=== PATIENT | male | born 1960 | race Caucasian/White ===

== ENCOUNTER → 2017-02-24 | Outpatient (CLI) | payer MEDICARE, SELFPAY | END | disposition home or self-care (01) | LOC: GMAJ 14:41 | PROVIDERS: ATTEND Family Medicine | DX: Z79.899 Other long term (current) drug therapy (principal) ==

== ENCOUNTER 2017-06-14 16:35 | Emergency (ER) | payer MEDICARE, SELFPAY ==
[2017-06-14] MEDS ORDERED: SODIUM CHLORIDE 0.9% 1000ML 1,000 ML IVS ONE (16:52)
--- NOTE | 2017-06-14 16:53 | ED.PDOC ---
History of Present Illness - General Chief Complaint: Neuro Symptoms/Deficits Stated Complaint: "my equilibrium is off" Time Seen by Provider: 06/14/17 16:49 Source: patient Exam Limitations: no limitations - History of Present Illness Initial Comments: Kurt Milner 56 y/o male with seizure disorder stated he had been feeling unsteady feels like fallin when he walks which started yesterday stated fell 2x at home but able to get up.Denies dizziness,slurred speech, weakness no tinnitus no hearing loss Timing/Duration: other - yesterday Severity: moderate Improving Factors: nothing Worsening Factors: nothing Associated Symptoms: denies symptoms Allergies/Adverse Reactions: Allergies NO KNOWN ALLERGY Allergy (Verified 10/30/15 07:27) Home Medications: Ambulatory Orders Phenytoin Sodium Extended [Phenytek] 200 mg PO BID 10/19/15 Albuterol Sulfate [Proair Hfa] 2 puff INH Q4H PRN #1 10/20/15 HYDROcodone 5MG/APAP 325MG [[place] 5/325] 1 - 2 ea PO Q4H PRN #30 tab 10/20/15 guaiFENesin ER TAB [Mucinex Tab] 600 mg PO BID #100 tab 10/20/15 Aspirin [St Nii Low Dose Aspiri] 81 mg PO DAILY #100 chw 06/14/17 B-Complex W/ Folic Acid [B Complex Plus] 1 tab PO DAILY #120 tab 06/14/17 Review of Systems - Review of Systems Constitutional: States: no symptoms reported EENTM: States: no symptoms reported, other - blind left eye Respiratory: States: no symptoms reported Cardiology: States: no symptoms reported Gastrointestinal/Abdominal: States: no symptoms reported Genitourinary: States: no symptoms reported Musculoskeletal: States: no symptoms reported Skin: States: no symptoms reported Neurological: States: no symptoms reported Past Medical History (General) - Patient Medical History Hx Seizures: Yes Hx Stroke: No Hx Asthma: No Hx of COPD: Yes Hx Cardiac Disorders: No Hx Congestive Heart Failure: No Hx Pacemaker: No Hx Hypertension: No Hx Diabetes: No Hx MRSA: No Surgical History: other - bronchoscopy - Vaccination History Hx Influenza Vaccination: No - Social History Hx Tobacco Use: Yes Hx Alcohol Use: Yes - Use decreased to one pint monthly. Hx Substance Use: No Hx Physical Abuse: No Hx Emotional Abuse: No - Activities of Daily Living Patient Lives Alone: Yes [facility] (if applicable): [facility] Grooming Ability: Independent Eating (Feeding) Ability: Independent Toileting Ability: Independent Family Medical History - Family History Father Family History: Unknown Name: Irving Mitchell Age (years): 70 Living Status: Age at (years of age): 70 Cause of : Stroke Hx Family Asthma: Yes - parents,brother Hx Family Congestive Heart Failure: No Hx Family Hypertension: Yes - Mother Hx Family Stroke: Yes - Father brother Hx Cardiac Disease: No Hx Family Diabetes: No Hx Family Cancer: Yes - Aunt breast cancer. Uncles colon cancer. Physical Exam - Physical Exam General Appearance: Alert, No apparent distress Eye Exam: right normal, left other - legally blind Ears, Nose, Throat: hearing grossly normal, normal ENT inspection, normal pharynx Neck: non-tender, full range of motion, supple, normal inspection Respiratory: chest non-tender, lungs clear, normal breath sounds Cardiovascular/Chest: normal peripheral pulses, regular rate, rhythm, no gallop , no murmur Peripheral Pulses: radial,right: 1+, radial,left: 1+ Gastrointestinal/Abdominal: normal bowel sounds, non tender, soft Back Exam: normal inspection, no CVA tenderness Extremity: normal range of motion, non-tender, normal inspection, no calf tenderness 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, no motor/sensory deficits, alert, normal mood/affect, oriented x 3, other - pronator drift negative,romberg negative DTR: 2+: Brachioradialis, left, Brachioradialis, right, Patellar, left, Patellar , right Skin Exam: normal color, warm/dry Lymphatic: no adenopathy Progress - Progress Progress: 06/14/17 18:01 Vital Signs - 8 hr 06/14/17 16:38 Temperature 98.7 F Pulse Rate [ 76 apical] Respiratory 20 Rate Blood Pressure 166/108 [right brachial ] O2 Sat by Pulse 97 Oximetry - Results/Orders Results/Orders: 06/14/17 17:00 EKG STAT RAPID PLASMA REAGIN Stat Laboratory Results - last 24 hr 06/14/17 06/14/17 06/14/17 17:00 17:00 17:00 WBC 5.3 RBC 5.09 Hgb 13.9 L Hct 42.3 MCV 83.2 MCH 27.3 MCHC 32.9 L RDW 13.4 Plt Count 272 MPV 7.0 L Absolute Neuts (auto) 3.50 Absolute Lymphs (auto) 1.40 Absolute Monos (auto) 0.30 Absolute Eos (auto) 0.10 Absolute Basos (auto) 0.10 Neutrophils % 66.3 Lymphocytes % 25.6 Monocytes % 5.0 Eosinophils % 1.8 Basophils % 1.3 Sodium 136 Potassium 4.1 Chloride 100 L Carbon Dioxide 28 Anion Gap 12.1 BUN 6 L Creatinine 0.58 L BUN/Creatinine Ratio 10.3 Random Glucose 138 H Serum Osmolality 271.8 L Calcium 8.8 Total Bilirubin 0.3 AST 16 ALT 11 Alkaline Phosphatase 75 Creatine Kinase 79 Serum Total Protein 7.0 Albumin 4.5 Globulin 2.5 Albumin/Globulin Ratio 1.8 Vitamin B12 TSH 1.62 Urine Color Urine Appearance Urine pH Ur Specific [place] Urine Protein Urine Glucose (UA) Urine Ketones Urine Blood Urine Nitrite Urine Bilirubin Urine Urobilinogen Ur Leukocyte Esterase Urine RBC Urine WBC Ur Epithelial Cells Urine Bacteria Urine Opiates Screen Urine Barbiturates Phenytoin < 0.5 L Ur Phencyclidine Scrn U Amphetamin/Meth Scrn U Benzodiazepines Scrn U Cocaine Metab Screen U Cannabinoids Screen 06/14/17 06/14/17 06/14/17 17:00 17:00 17:27 WBC RBC Hgb Hct MCV MCH MCHC RDW Plt Count MPV Absolute Neuts (auto) Absolute Lymphs (auto) Absolute Monos (auto) Absolute Eos (auto) Absolute Basos (auto) Neutrophils % Lymphocytes % Monocytes % Eosinophils % Basophils % Sodium Potassium Chloride Carbon Dioxide Anion Gap BUN Creatinine BUN/Creatinine Ratio Random Glucose Serum Osmolality Calcium Total Bilirubin AST ALT Alkaline Phosphatase Creatine Kinase Serum Total Protein Albumin Globulin Albumin/Globulin Ratio Vitamin B12 Cancelled 277 TSH Urine Color Yellow Urine Appearance Clear Urine pH 7.0 Ur Specific [place] 1.015 Urine Protein Negative Urine Glucose (UA) Negative Urine Ketones Negative Urine Blood Negative Urine Nitrite Negative Urine Bilirubin Negative Urine Urobilinogen 0.2 Ur Leukocyte Esterase Negative Urine RBC 0 Urine WBC 0 Ur Epithelial Cells 0-1 Urine Bacteria 0 Urine Opiates Screen Urine Barbiturates Phenytoin Ur Phencyclidine Scrn U Amphetamin/Meth Scrn U Benzodiazepines Scrn U Cocaine Metab Screen U Cannabinoids Screen 06/14/17 17:47 WBC RBC Hgb Hct MCV MCH MCHC RDW Plt Count MPV Absolute Neuts (auto) Absolute Lymphs (auto) Absolute Monos (auto) Absolute Eos (auto) Absolute Basos (auto) Neutrophils % Lymphocytes % Monocytes % Eosinophils % Basophils % Sodium Potassium Chloride Carbon Dioxide Anion Gap BUN Creatinine BUN/Creatinine Ratio Random Glucose Serum Osmolality Calcium Total Bilirubin AST ALT Alkaline Phosphatase Creatine Kinase Serum Total Protein Albumin Globulin Albumin/Globulin Ratio Vitamin B12 TSH Urine Color Urine Appearance Urine pH Ur Specific [place] Urine Protein Urine Glucose (UA) Urine Ketones Urine Blood Urine Nitrite Urine Bilirubin Urine Urobilinogen Ur Leukocyte Esterase Urine RBC Urine WBC Ur Epithelial Cells Urine Bacteria Urine Opiates Screen Negative Urine Barbiturates Negative Phenytoin Ur Phencyclidine Scrn Negative U Amphetamin/Meth Scrn Negative U Benzodiazepines Scrn Positive H U Cocaine Metab Screen Negative U Cannabinoids Screen Negative - EKG/XRAY/CT EKG: Sinus, nonspecific ST T wave Chg Comments: NSR-heart rate 71 XRAY: chest - copd changes/radiologist CT Ordered: Yes - no brain hemorrhage or infarct/radiologist Departure - Departure Clinical Impression: Falls frequently, Unsteady Nicotine dependence Qualifiers: Nicotine product type: cigarettes Substance use status: unspecified nicotine- induced disorder Qualified Code(s): F17.219 - Nicotine dependence, cigarettes, with unspecified nicotine-induced disorders Time of Disposition: 19:34 Disposition: Discharge to Home or Self Care Condition: Fair Departure Forms: ED Discharge - Pt. Copy, Patient Portal Self Enrollment Instructions: Tips to Help You Stop Smoking, Smoking Cessation for Older Adults : It's Not Too Late!, How to Quit Smoking, Reasons to Quit Smoking Referrals: Demetrius Watkins MD [Primary Care Provider] - 1-2 Weeks Prescriptions: Aspirin [[facility] [place] Low Dose Aspiri] 81 mg PO DAILY #100 chw B-Complex W/ Folic Acid [B Complex Plus] 1 tab PO DAILY #120 tab Home Medications: Ambulatory Orders Phenytoin Sodium Extended [Phenytek] 200 mg PO BID 10/19/15 Albuterol Sulfate [Proair Hfa] 2 puff INH Q4H PRN #1 10/20/15 HYDROcodone 5MG/APAP 325MG [[place] 5/325] 1 - 2 ea PO Q4H PRN #30 tab 10/20/15 guaiFENesin ER TAB [Mucinex Tab] 600 mg PO BID #100 tab 10/20/15 Aspirin [[facility] Nii Low Dose Aspiri] 81 mg PO DAILY #100 chw 06/14/17 B-Complex W/ Folic Acid [B Complex Plus] 1 tab PO DAILY #120 tab 06/14/17 Additional Instructions: RETURN TO EMERGENCY ROOM NEEDED;FOLLOW UP WITH PRIMARY MD 06/15/2017
[2017-06-14 17:14] VITALS: TEMP 98.7
--- NOTE | 2017-06-14 17:21 | RAD ---
EXAM DESCRIPTION: Chest,1 View CLINICAL HISTORY: 56 years Male weak COMPARISON: 10/20/2015 FINDINGS: Cardiac size and mediastinal contour appear stable. Lungs are hyperinflated consistent with COPD. Small amount of scarring is present lung bases. There is no evidence of pneumothorax and no evidence of acute consolidation. Blunting of the costophrenic angles was present on the previous study and is likely related to scarring. IMPRESSION: Blunting of the costophrenic angles likely related to scarring rather than a small effusions Pulmonary hyperinflation related to COPD Electronically signed by: Lou Mathur 06/14/2017 5:20 PM CDT
--- NOTE | 2017-06-14 18:29 | CT ---
PROCEDURE: Head CLINICAL HISTORY: 56 years Male falling, discoordination COMPARISON: None. TECHNIQUE: Contiguous axial images obtained through the brain without IV contrast. This exam was performed according to our department optimization program which includes automated exposure control, adjustment of the mA and/or kv according to patient size and/or use of iterative reconstruction technique. FINDINGS: The ventricles and sulci are prominent consistent with atrophic changes. No mass lesions. No acute hemorrhage. Atherosclerotic calcifications. No fluid or significant mucosal thickening in the visualized paranasal sinuses. No depressed calvarial fractures. IMPRESSION: No acute intracranial abnormality is identified. Electronically signed by: Lou Mathur 06/14/2017 6:27 PM CDT
[2017-06-14] MEDS ORDERED: CYANOCOBALAMIN INJ 1,000 MCG/ML INJ IM ONE (18:49)
[2017-06-14 19:56] VITALS: BP 166/61; O2SAT 97
== END 2017-06-14 19:56 | disposition home or self-care (01) ==
LOC: ER 16:35
DX: R26.81 Unsteadiness on feet (principal); G40.909 Epilepsy, unspecified, not intractable, without status epilepticus; J44.9 Chronic obstructive pulmonary disease, unspecified; F17.210 Nicotine dependence, cigarettes, uncomplicated; Z91.81 History of falling; Z79.899 Other long term (current) drug therapy; Z79.82 Long term (current) use of aspirin
CPT/HCPCS: 36415; 70450; 71010; 80053; 80185; 80307; 81001; 82550; 82607; 84443; 85025; 93005; J3420; J7030

== ENCOUNTER 2017-07-27 03:59 | Observation (INO) | payer MEDICARE ==
--- NOTE | 2017-07-27 04:08 | ED.PDOC ---
History of Present Illness - General Chief Complaint: Chest Pain/ME Stated Complaint: chest pain and sob Time Seen by Provider: 07/27/17 04:06 Source: patient Exam Limitations: no limitations - History of Present Illness Initial Comments: Kurt Milner 56 y/o male stated while in bed watching TV about 3 hours ago had onset of SOB and left sided sharp lower chest pains non radiating no diaphoresis or feeling of nausea which lasted for about 30 minutes then eased down but about 3 hours later had recurrence of his symptoms and getting more sob decided to call ems and was brought to ER. Timing/Duration: 4-6 hours, intermittent, other - sharp chest pain less 2/10( pain scale) Severity: moderate Location: other - left lower chest area Activities at Onset: rest Prior Chest Pain/Cardiac Workup: no prior chest pain, no prior cardiac workup Worsening Factors: nothing Nitro Today/Relief: no nitro taken today, 0.4 mg x 1, provided by EMS Aspirin Treatment Today: 325 mg x 1, provided by EMS Associated Symptoms: cough - dry Allergies/Adverse Reactions: Allergies NO KNOWN ALLERGY Allergy (Verified 10/30/15 07:27) Home Medications: Ambulatory Orders Phenytoin Sodium Extended [Phenytek] 200 mg PO BID 10/19/15 Review of Systems - Review of Systems Constitutional: States: no symptoms reported EENTM: States: no symptoms reported Respiratory: States: see HPI Cardiology: States: see HPI Gastrointestinal/Abdominal: States: no symptoms reported Genitourinary: States: no symptoms reported Musculoskeletal: States: no symptoms reported Skin: States: no symptoms reported Neurological: States: seizure - on medication Past Medical History (General) - Patient Medical History Hx Seizures: Yes Hx Stroke: No Hx Asthma: No Hx of COPD: Yes Hx Cardiac Disorders: No Hx Congestive Heart Failure: No Hx Pacemaker: No Hx Hypertension: No Hx Diabetes: No Hx MRSA: No Surgical History: other - bronchoscopy procedure - Vaccination History Hx Influenza Vaccination: No - Social History Hx Tobacco Use: Yes Hx Alcohol Use: Yes - Use decreased to one pint monthly. Hx Substance Use: No Hx Physical Abuse: No Hx Emotional Abuse: No - Activities of Daily Living Patient Lives Alone: Yes Grooming Ability: Independent Eating (Feeding) Ability: Independent Toileting Ability: Independent Family Medical History - Family History Father Family History: Unknown Name: Irving Mitchell Age (years): 70 Living Status: Age at (years of age): 70 Cause of : Stroke Hx Family Asthma: Yes - parents,brother Hx Family Congestive Heart Failure: No Hx Family Hypertension: Yes - Mother Hx Family Stroke: Yes - Father brother Hx Cardiac Disease: No Hx Family Diabetes: No Hx Family Cancer: Yes - Aunt breast cancer. Uncles colon cancer. Physical Exam - Physical Exam General Appearance: Alert, Comfortable, No apparent distress Eyes, Ears, Nose, Throat Exam: normal ENT inspection, other - legally blind left eye Neck: non-tender, supple Respiratory: chest non-tender, decreased breath sounds Cardiovascular/Chest: normal peripheral pulses, no murmur, tachycardia Peripheral Pulses: radial,right: 1+, radial,left: 1+, dorsalis pedis,right: 1+, dorsalis pedis,left: 1+ Gastrointestinal/Abdominal: non tender, soft, no organomegaly, no pulsatile mass Extremity: non-tender, normal inspection, no pedal edema, no calf tenderness Neurologic: no motor/sensory deficits, alert, oriented x 3 Skin Exam: normal color, warm/dry Lymphatic: no adenopathy Progress - Progress Progress: 07/27/17 04:50 Vital Signs - 8 hr 07/27/17 07/27/17 07/27/17 04:08 04:13 04:40 Temperature 97.6 F Pulse Rate [ 108 H 85 Apical] Respiratory 22 22 20 Rate Blood Pressure 149/100 153/95 [Left Arm] O2 Sat by Pulse 97 99 Oximetry 07/27/17 04:09 IV Care:Saline Lock per Protoc QSHIFT Sodium Chloride 0.9% 1000ML [Ns 1000 ml] 1,000 ml IVS ONCE 07/27/17 04:15 EKG STAT 07/27/17 04:30 B-TYPE NATRIURETIC PEPTIDE/BNP Stat CARDIAC PANEL,ER Stat HEPATIC FUNCTION PANEL Stat PHENYTOIN (DILANTIN) Stat URINE DRUG SCREEN, 7 ASSAY Stat D-DIMER,QUANTITATIVE Stat URINALYSIS Stat 07/27/17 04:47 SVN/Updraft Therapy .ONCE 07/27/17 09:00 Updrafts Daily Laboratory Results WBC 7.7 K/mm3 (4.8-10.8) 07/27/17 04:30 RBC 5.12 M/mm3 (4.70-6.10) 07/27/17 04:30 Hgb 14.1 gm/dL (14.0-18.0) 07/27/17 04:30 Hct 42.0 % (42.0-52.0) 07/27/17 04:30 MCV 82.2 fl (80.0-94.0) 07/27/17 04:30 MCH 27.6 pg (27.0-31.0) 07/27/17 04:30 MCHC 33.5 g/dL (33.0-37.0) 07/27/17 04:30 RDW 13.7 % (11.5-14.5) 07/27/17 04:30 Plt Count 271 K/mm3 (130-400) 07/27/17 04:30 MPV 6.9 fl (7.40-10.4) L 07/27/17 04:30 Absolute Neuts (auto) 5.80 K/uL (1.8-6.8) 07/27/17 04:30 Absolute Lymphs (auto) 1.30 K/uL (1.0-3.4) 07/27/17 04:30 Absolute Monos (auto) 0.40 K/uL (0.2-0.8) 07/27/17 04:30 Absolute Eos (auto) 0.00 K/uL (0.0-0.4) 07/27/17 04:30 Absolute Basos (auto) 0.10 K/uL (0.0-0.1) 07/27/17 04:30 Neutrophils % 75.7 % (42.0-78.0) 07/27/17 04:30 Lymphocytes % 17.4 % (20.0-50.0) L 07/27/17 04:30 Monocytes % 5.5 % (2.0-9.0) 07/27/17 04:30 Eosinophils % 0.6 % (1.0-5.0) L 07/27/17 04:30 Basophils % 0.8 % (0.0-2.0) 07/27/17 04:30 - Results/Orders Results/Orders: Laboratory Last Values WBC 7.7 K/mm3 (4.8-10.8) 07/27/17 04:30 RBC 5.12 M/mm3 (4.70-6.10) 07/27/17 04:30 Hgb 14.1 gm/dL (14.0-18.0) 07/27/17 04:30 Hct 42.0 % (42.0-52.0) 07/27/17 04:30 MCV 82.2 fl (80.0-94.0) 07/27/17 04:30 MCH 27.6 pg (27.0-31.0) 07/27/17 04:30 MCHC 33.5 g/dL (33.0-37.0) 07/27/17 04:30 RDW 13.7 % (11.5-14.5) 07/27/17 04:30 Plt Count 271 K/mm3 (130-400) 07/27/17 04:30 MPV 6.9 fl (7.40-10.4) L 07/27/17 04:30 Absolute Neuts (auto) 5.80 K/uL (1.8-6.8) 07/27/17 04:30 Absolute Lymphs (auto) 1.30 K/uL (1.0-3.4) 07/27/17 04:30 Absolute Monos (auto) 0.40 K/uL (0.2-0.8) 07/27/17 04:30 Absolute Eos (auto) 0.00 K/uL (0.0-0.4) 07/27/17 04:30 Absolute Basos (auto) 0.10 K/uL (0.0-0.1) 07/27/17 04:30 Neutrophils % 75.7 % (42.0-78.0) 07/27/17 04:30 Lymphocytes % 17.4 % (20.0-50.0) L 07/27/17 04:30 Monocytes % 5.5 % (2.0-9.0) 07/27/17 04:30 Eosinophils % 0.6 % (1.0-5.0) L 07/27/17 04:30 Basophils % 0.8 % (0.0-2.0) 07/27/17 04:30 PT 11.9 SECONDS (9.4-12.5) 07/27/17 04:30 INR 1.050 07/27/17 04:30 PTT (SP) 31.2 SECONDS (25.1-36.5) 07/27/17 04:30 D-Dimer, Quantitative < 230 ng/mL (0-230) 07/27/17 04:30 Sodium 133 mmol/L (135-145) L 07/27/17 04:30 Potassium 3.1 mmol/L (3.6-5.0) L 07/27/17 04:30 Chloride 98 mmol/L (101-111) L 07/27/17 04:30 Carbon Dioxide 28 mmol/L (21-31) 07/27/17 04:30 Anion Gap 10.1 (12-18) L 07/27/17 04:30 BUN < 5 mg/dL (7-18) L 07/27/17 04:30 Creatinine 0.63 mg/dL (0.6-1.3) 07/27/17 04:30 BUN/Creatinine Ratio 7.9 (10-20) L 07/27/17 04:30 Random Glucose 140 mg/dL (70-105) H 07/27/17 04:30 Serum Osmolality 265.9 mOsm/L (275-295) L 07/27/17 04:30 Calcium 8.1 mg/dL (8.4-10.2) L 07/27/17 04:30 Magnesium 1.7 mg/dL (1.8-2.5) L 07/27/17 04:30 Total Bilirubin 0.5 mg/dL (0.2-1.0) 07/27/17 04:30 Direct Bilirubin < 0.1 mg/dL (0-0.2) 07/27/17 04:30 Indirect Bilirubin 0.4 mg/dL (0.2-0.8) 07/27/17 04:30 AST 18 IU/L (10-42) 07/27/17 04:30 ALT 13 IU/L (10-60) 07/27/17 04:30 Alkaline Phosphatase 79 IU/L (42-121) 07/27/17 04:30 Creatine Kinase 89 IU/L (38-174) 07/27/17 04:30 CK-MB (CK-2) 3.6 ng/mL (0.0-4.4) 07/27/17 04:30 CK-MB (CK-2) % Not Reportable 07/27/17 04:30 Troponin I 0.02 ng/mL (0.01-0.05) 07/27/17 05:55 B-Natriuretic Peptide 8.5 pg/ml (0-100) 07/27/17 04:30 Serum Total Protein 6.2 gm/dL (6.4-8.2) L 07/27/17 04:30 Albumin 3.9 g/dl (3.2-5.5) 07/27/17 04:30 Urine Color Yellow (Yellow) 07/27/17 04:30 Urine Appearance Clear (Clear) 07/27/17 04:30 Urine pH 6.5 (4.5-7.8) 07/27/17 04:30 Ur Specific [employer] 1.025 (1.005-1.030) 07/27/17 04:30 Urine Protein Negative mg/dL 07/27/17 04:30 Urine Glucose (UA) 100 mg/dL (Negative) H 07/27/17 04:30 Urine Ketones Negative mg/dL (NEGATIVE) 07/27/17 04:30 Urine Blood Trace-intact (Negative) H 07/27/17 04:30 Urine Nitrite Negative 07/27/17 04:30 Urine Bilirubin Negative (NEGATIVE) 07/27/17 04:30 Urine Urobilinogen 0.2 mg/dL (0.2-1.0) 07/27/17 04:30 Ur Leukocyte Esterase Negative (Negative) 07/27/17 04:30 Urine RBC 0-1 /hpf 07/27/17 04:30 Urine WBC 0 /hpf 07/27/17 04:30 Ur Epithelial Cells 0 /hpf 07/27/17 04:30 Urine Bacteria Rare 07/27/17 04:30 Urine Mucus Small 07/27/17 04:30 Urine Opiates Screen Negative ng/mL (2000) 07/27/17 04:30 Urine Barbiturates Negative ng/mL (200) 07/27/17 04:30 Phenytoin 6.4 ug/mL (10.0-20.0) L 07/27/17 04:30 Ur Phencyclidine Scrn Negative ng/mL (25) 07/27/17 04:30 U Amphetamin/Meth Scrn Negative ng/mL (1000) 07/27/17 04:30 U Benzodiazepines Scrn Positive ng/mL (200) H 07/27/17 04:30 U Cocaine Metab Screen Negative ng/mL (300) 07/27/17 04:30 U Cannabinoids Screen Negative ng/mL (50) 07/27/17 04:30 Laboratory Tests 07/27/17 07/27/17 07/27/17 04:30 04:30 04:30 WBC 7.7 RBC 5.12 Hgb 14.1 Hct 42.0 MCV 82.2 MCH 27.6 MCHC 33.5 RDW 13.7 Plt Count 271 MPV 6.9 L Absolute Neuts (auto) 5.80 Absolute Lymphs (auto) 1.30 Absolute Monos (auto) 0.40 Absolute Eos (auto) 0.00 Absolute Basos (auto) 0.10 Neutrophils % 75.7 Lymphocytes % 17.4 L Monocytes % 5.5 Eosinophils % 0.6 L Basophils % 0.8 PT 11.9 INR 1.050 PTT (SP) 31.2 D-Dimer, Quantitative < 230 Sodium 133 L Potassium 3.1 L Chloride 98 L Carbon Dioxide 28 Anion Gap 10.1 L BUN < 5 L Creatinine 0.63 BUN/Creatinine Ratio 7.9 L Random Glucose 140 H Serum Osmolality 265.9 L Calcium 8.1 L Magnesium 1.7 L Total Bilirubin 0.5 Direct Bilirubin < 0.1 Indirect Bilirubin 0.4 AST 18 ALT 13 Alkaline Phosphatase 79 Creatine Kinase 89 CK-MB (CK-2) 3.6 CK-MB (CK-2) % Not Reportable Troponin I < 0.02 B-Natriuretic Peptide 8.5 Serum Total Protein 6.2 L Albumin 3.9 Urine Color Urine Appearance Urine pH Ur Specific [employer] Urine Protein Urine Glucose (UA) Urine Ketones Urine Blood Urine Nitrite Urine Bilirubin Urine Urobilinogen Ur Leukocyte Esterase Urine RBC Urine WBC Ur Epithelial Cells Urine Bacteria Urine Mucus Urine Opiates Screen Negative Urine Barbiturates Negative Phenytoin Ur Phencyclidine Scrn Negative U Amphetamin/Meth Scrn Negative U Benzodiazepines Scrn Positive H U Cocaine Metab Screen Negative U Cannabinoids Screen Negative 07/27/17 07/27/17 07/27/17 04:30 04:30 05:55 WBC RBC Hgb Hct MCV MCH MCHC RDW Plt Count MPV Absolute Neuts (auto) Absolute Lymphs (auto) Absolute Monos (auto) Absolute Eos (auto) Absolute Basos (auto) Neutrophils % Lymphocytes % Monocytes % Eosinophils % Basophils % PT INR PTT (SP) D-Dimer, Quantitative Sodium Potassium Chloride Carbon Dioxide Anion Gap BUN Creatinine BUN/Creatinine Ratio Random Glucose Serum Osmolality Calcium Magnesium Total Bilirubin Direct Bilirubin Indirect Bilirubin AST ALT Alkaline Phosphatase Creatine Kinase CK-MB (CK-2) CK-MB (CK-2) % Troponin I 0.02 B-Natriuretic Peptide Serum Total Protein Albumin Urine Color Yellow Urine Appearance Clear Urine pH 6.5 Ur Specific [employer] 1.025 Urine Protein Negative Urine Glucose (UA) 100 H Urine Ketones Negative Urine Blood Trace-intact H Urine Nitrite Negative Urine Bilirubin Negative Urine Urobilinogen 0.2 Ur Leukocyte Esterase Negative Urine RBC 0-1 Urine WBC 0 Ur Epithelial Cells 0 Urine Bacteria Rare Urine Mucus Small Urine Opiates Screen Urine Barbiturates Phenytoin 6.4 L Ur Phencyclidine Scrn U Amphetamin/Meth Scrn U Benzodiazepines Scrn U Cocaine Metab Screen U Cannabinoids Screen - EKG/XRAY/CT EKG: Sinus, Tachy, nonspecific ST T wave Chg, Unchanged from - 06/14/17 except for rate Comments: heart rate 105 XRAY: chest - emphysematous lungs Departure - Departure Clinical Impression: Tachycardia, Shortness of breath Chest pain Qualifiers: Chest pain type: unspecified Qualified Code(s): R07.9 - Chest pain, unspecified Time of Disposition: 06:39 Disposition: Admit Patient Condition: Fair Referrals: Demetrius Watkins MD [Primary Care Provider] - 1-2 Weeks Home Medications: Ambulatory Orders Phenytoin Sodium Extended [Phenytek] 200 mg PO BID 10/19/15 Decision To Admit - Decistion To Admit Decision to Admit Reason: Admit from ER Decision to Admit Date: 07/27/17 Decision to Admit Time: 06:44 - D/W Elba Martin -YVETTE/Hospitalist
[2017-07-27] MEDS ORDERED: SODIUM CHLORIDE 0.9% 1000ML 1,000 ML IVS ONE (04:09)
--- NOTE | 2017-07-27 04:35 | RAD ---
EXAM: Single view chest. INDICATION: Pain. COMPARISON: Chest x-ray: 06/14/2017. FINDINGS: Cardiac silhouette: Unremarkable. Gale: Unremarkable. Lobar consolidation: None. Pleural effusion: None. Pneumothorax: None. Other: The lungs are emphysematous Bones: Unremarkable. Other: None. IMPRESSION: Emphysematous appearing lungs Electronically signed by: Daniel Hernandes MD 07/27/2017 4:33 AM CDT Workstation: [id number]
[2017-07-27] MEDS ORDERED: IPRATROPIUM/ALBUTEROL 3 ML VIAL NEB ONE (04:47)
[2017-07-27] MEDS ORDERED: MAGNESIUM SULFATE PREMIX 2GM 2 GM in PREMIX BAG 1 BAG IVPB ONE ×2 (05:20→10:28)
[2017-07-27] MEDS ORDERED: POTASSIUM CHLORIDE 20 MEQ TAB PO ONE ×2 (05:22→10:28)
[2017-07-27] MEDS ORDERED: MAGNESIUM SULFATE PREMIX 2GM 0 ML IVPB ONE (05:23)
--- NOTE | 2017-07-27 08:01 | HP ---
SUPERVISING PHYSICIAN: Demetrius Watkins MD CHIEF COMPLAINT: Chest pain. 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 He had no complaints of diaphoresis, nausea or vomiting. It did not radiate. It resolved after about 30 minutes, but 3 hours later, it recurred and he came to the Emergency Room. In the Emergency Room, his chest x-ray per radiologic interpretation showed emphysematous lungs. He has no history of emphysema, but he does have a chronic cough with clear sputum and he has a 50 plus pack year smoking history. Labs showed WBCs 7.7, hemoglobin 14.4, hematocrit 42. D-dimer was less than 230. Sodium 133, potassium 3.1, chloride 98, carbon dioxide 28, BUN less than 5 , creatinine 0.63, glucose 140, magnesium 1.7. Urine showed a trace amount of urine blood with elevated urine glucose at 100 and his urine drug screen was negative with the exception of positive for benzodiazepines and his Dilantin level was low at 6.4. His initial cardiac enzymes were negative. Approximately 1-1/2 hours later, his troponin was repeated and it was also negative. I was called for admission for observation to rule out myocardial infarction. PAST MEDICAL HISTORY: 1. Gastroesophageal reflux disease. 2. Seizure disorder. 3. Anxiety. 4. Depression. 5. Bipolar disorder. PAST SURGICAL HISTORY: 1. Bronchoscopy. OUTPATIENT MEDICATIONS: 1. Dilantin capsules 100 mg, 2 capsules by mouth b.i.d. ALLERGIES: TETANUS TOXOID. SOCIAL HISTORY: He is disabled. He is single. He smokes 1 to 1-1/2 packs of cigarettes per day and denies any ETOH or illicit drug use. REVIEW OF SYSTEMS: GENERAL: Denies fever, fatigue or weight changes. HEENT: Denies sinus symptoms, ear pain, vision changes or sore throat. RESPIRATORY: Positive for productive cough with clear sputum and acute onset of shortness of breath. Negative for wheezing. CARDIAC: As per history of present illness. GASTROINTESTINAL: Denies nausea, vomiting, diarrhea, constipation or abdominal pain. GENITOURINARY: Denies hematuria, dysuria or polyuria. NEUROLOGIC: Denies headache, dizziness, or seizures. SKIN: Denies lesions or rashes. PHYSICAL EXAMINATION: VITAL SIGNS: Afebrile. Heart rate 64. Blood pressure 136/87. Respiratory rate 22. O2 saturation 98%. GENERAL: This is a thin 56-year-old male patient who is lying in his hospital bed. HEENT: Normocephalic, atraumatic. He is blind in his left eye. His right eye pupil is reactive. Oropharynx is clear. NECK: Supple without mass. No discernible jugular venous distention. RESPIRATORY: Diminished breath sounds throughout, but without wheezing or crackles. CHEST: There is equal rise and fall of the chest with inspiration and expiration. CARDIOVASCULAR: Regular rate and rhythm. ABDOMEN: Soft, nondistended, nontender. Bowel sounds are positive. EXTREMITIES: No cyanosis, clubbing or edema. NEUROLOGIC: Awake, alert and oriented times three, but he is very anxious. LABORATORY: Labs and films are as per the history of present illness. ASSESSMENT: 1. Chest pain, rule out myocardial infarction. 2. Acute onset of shortness of breath, without a diagnosis of chronic obstructive pulmonary disease in a chronic smoker and emphysematous lungs per xray. 3. Tobacco abuse. 4. Hypokalemia. 5. Hypomagnesemia. 6. Gastroesophageal reflux disease. PLAN: We will place the patient in observation and initiate the chest pain guidelines. We will monitor cardiac enzymes and EKG. I will give him a dose of potassium and magnesium and recheck his lab in the morning. We will offer him a nicotine patch. I will restart his home medications and I will give him an extra dose of Dilantin. I have encouraged him to stop smoking. I will also add breathing treatments and pulmonary hygiene. Due to his long history of smoking, he may benefit from a PFT before discharge with breathing treatments, as well as follow up for new diagnosis of COPD. Lovenox for DVT prophylaxis and a PPI for ulcer prophylaxis has been ordered. We will continue to monitor the patient closely and follow as needed. Dr. Watkins is the collaborating physician and available for consultation. #[id number] [facility]
[2017-07-27] MEDS ORDERED: SODIUM CHLORIDE 0.9% (FLUSH) 10 ML SYG IV PRN (09:28)
[2017-07-27] MEDS ORDERED: MORPHINE SULFATE INJ 10 MG/ML VIAL IV PRN (09:28)
[2017-07-27] MEDS ORDERED: NITROGLYCERIN 0.4 MG 25 EA TAB SL PRN (09:28)
[2017-07-27] MEDS ORDERED: ACETAMINOPHEN 325 MG TAB PO PRN (09:28)
[2017-07-27] MEDS ORDERED: IV SET AND CAP CHANGE INJ INJ SCH (09:30)
[2017-07-27] MEDS ORDERED: MAGNESIUM SULFATE PREMIX 2GM 50 ML IVPB ONE (10:42)
[2017-07-27] MEDS: PANTOPRAZOLE SODIUM TAB 40 MG PO SCH (10:49)
[2017-07-27] MEDS: ENOXAPARIN SODIUM 40 MG/0.4 ML SYG SUBCU SCH (10:50)
[2017-07-27] MEDS ORDERED: LEVALBUTEROL NEBS 1.25 MG/3 ML VIAL NEB PRN (11:02)
[2017-07-27] MEDS: PHENYTOIN SODIUM CAP EXTENDED 100 MG CAP PO SCH ×4 (12:17→21:42)
[2017-07-27] MEDS: NICOTINE PATCH 21 MG TD SCH (12:18)
[2017-07-27] MEDS: LEVALBUTEROL NEBS 1.25 MG/3 ML VIAL NEB SCH ×3 (12:40→19:50)
[2017-07-27] MEDS: SODIUM CHLORIDE 0.9% (FLUSH) 10 ML SYG IV SCH (21:40)
[2017-07-28] MEDS: PANTOPRAZOLE SODIUM TAB 40 MG PO SCH (05:44)
[2017-07-28] MEDS: LEVALBUTEROL NEBS 1.25 MG/3 ML VIAL NEB SCH ×2 (08:19→12:37)
[2017-07-28] MEDS ORDERED: ASPIRIN TABLET 325 MG TAB PO SCH (09:00)
[2017-07-28] MEDS: PHENYTOIN SODIUM CAP EXTENDED 100 MG CAP PO SCH (09:45)
[2017-07-28] MEDS: SODIUM CHLORIDE 0.9% (FLUSH) 10 ML SYG IV SCH (09:48)
[2017-07-28] MEDS: ENOXAPARIN SODIUM 40 MG/0.4 ML SYG SUBCU SCH (10:08)
[2017-07-28 10:52] VITALS: BP 116/81; TEMP 98.2
[2017-07-28] MEDS: NICOTINE PATCH 21 MG TD SCH (12:23)
[2017-07-28 12:41] VITALS: O2SAT 98
[2017-07-28] MEDS ORDERED: PNEUMOCOCCAL VACCINE 0.5 ML INJ IM ONE (13:01)
--- NOTE | 2017-07-28 13:50 | DS ---
SUPERVISING PHYSICIAN: Demetrius Watkins MD DISCHARGE DIAGNOSIS: 1. Chest pain, rule out myocardial infarction. Cardiac enzymes have been negative. 2. Acute onset of shortness of breath without a diagnosis of chronic obstructive pulmonary disease in a chronic smoker and emphysematous lungs per chest x- ray. 3. Tobacco abuse. 4. Hypokalemia, resolved. 5. Hypomagnesemia, resolved. 6. Gastroesophageal reflux disease. 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 He had no complaints of diaphoresis, nausea or vomiting. It did not radiate. It resolved after about 30 minutes, but 3 hours later, it recurred and he came to the Emergency Room. In the Emergency Room, his chest x-ray per radiologic interpretation showed emphysematous lungs. He has no history of emphysema, but he does have a chronic cough with clear sputum and he has a 50 plus pack year smoking history. Labs in the Emergency Room showed WBCs 7.7, hemoglobin 14.4, hematocrit 42. D -dimer was less than 230. Sodium 133, potassium 3.1, chloride 98, carbon dioxide 28, BUN less than 5, creatinine 0.63, glucose 140, magnesium 1.7. Urine showed a trace amount of urine blood with elevated urine glucose at 100 and his urine drug screen was negative with the exception of positive for benzodiazepines and his Dilantin level was low at 6.4. His initial cardiac enzymes were negative. He was placed in observation in the hospital. HOSPITAL COURSE: The patient was given membranes are bilaterally clear as well as potassium and his potassium normalized today to 3.6 and his magnesium normalized to 1.8. His second and third set of cardiac enzymes were both negative. He received an extra dose of Dilantin and his Dilantin level this morning was normal at 14.5. He has had no further complaints of chest pain, although he does have shortness of breath with exertion and may be most likely due to his emphysema. DISCHARGE PLAN: The patient will be discharged home in stable condition. He has a followup with VICTOR MANUEL Ling, in Dr. Watkins' office on Tuesday at 10 AM. Pulmonary function tests were done prior to his discharge due to his new diagnosis of chronic obstructive pulmonary disease. He may need treatment in the outpatient setting for COPD and I am sending him home on short-acting beta agonist as well as a rescue inhaler. His pulmonary function tests are pending and those can be followed up in clinic. I have also sent him home on nitroglycerin for further complaints of chest pain. I have encouraged him to stop smoking and we discussed smoking cessation at length. He is to return to the hospital or followup with Dr. Watkins' office for any further complaints or symptoms. DISCHARGE MEDICATIONS: 1. Phenytoin. 2. Aspirin. 3. Nitroglycerin. 4. Albuterol sulfate. 5. Ventolin rescue inhaler. Dr. Watkins is the collaborating physician and available for consultation. [facility][id number] [facility]
== END 2017-07-28 13:50 | disposition home or self-care (01) ==
LOC: ER 03:59 → MS 07:59
PROVIDERS: ADMIT Nurse Practitioner Acute Care; ATTEND Nurse Practitioner Acute Care
DX: R07.89 Other chest pain (principal); R06.02 Shortness of breath; F17.210 Nicotine dependence, cigarettes, uncomplicated; R91.8 Other nonspecific abnormal finding of lung field; E87.6 Hypokalemia; E83.42 Hypomagnesemia; K21.9 Gastro-esophageal reflux disease without esophagitis; R00.0 Tachycardia, unspecified; G40.909 Epilepsy, unspecified, not intractable, without status epilepticus; F41.9 Anxiety disorder, unspecified; F31.9 Bipolar disorder, unspecified; Z79.899 Other long term (current) drug therapy; Z88.7 Allergy status to serum and vaccine; Z28.21 Immunization not carried out because of patient refusal; Z82.3 Family history of stroke; Z82.49 Family history of ischemic heart disease and other diseases of the circulatory system; Z80.3 Family history of malignant neoplasm of breast; Z80.0 Family history of malignant neoplasm of digestive organs
CPT/HCPCS: 36415 ×7; 71010; 80048 ×2; 80061; 80076; 80185 ×2; 80307; 81001; 82550 ×3; 82553 ×3; 83735; 83880; 84484 ×4; 85025 ×2; 85379; 85610; 85730; 93005 ×3; 94060; 94640 ×6; 94760 ×7; 96361; 96365; 96372 ×2; 99284; G0378; J1650 ×2; J3475; J7030; J7614 ×5; J7620

== ENCOUNTER → 2017-08-01 | Outpatient (CLI) | payer MEDICARE | END | disposition home or self-care (01) | LOC: GMA 14:06 | PROVIDERS: ATTEND Physician Assistant | DX: R07.2 Precordial pain (principal) ==

== ENCOUNTER → 2017-08-09 | Outpatient (CLI) | payer MEDICARE | END | disposition home or self-care (01) | LOC: GMAJ 16:33 | PROVIDERS: ATTEND Family Medicine | DX: Z79.899 Other long term (current) drug therapy (principal) ==

== ENCOUNTER 2017-10-27 16:05 | Observation (INO) | payer MEDICARE ==
[2017-10-27] MEDS ORDERED: predniSONE 20 MG TAB ONE (16:23)
[2017-10-27] MEDS ORDERED: ALPRAZolam 0.25 MG TAB ONE (16:23)
[2017-10-27] MEDS ORDERED: cefTRIAXone SODIUM 1 GM VIAL ONE (18:10)
[2017-10-27] MEDS ORDERED: methylPREDNISolone SODIUM SUC 125 MG/2 ML VIAL ONE (18:10)
[2017-10-27] MEDS ORDERED: AZITHROMYCIN IV 500 MG VIAL IVPB ONE (18:10)
[2017-10-27] MEDS ORDERED: SODIUM CHL 0.9% 100ML MINI-BAG 100 ML IVPB ONE (18:11)
[2017-10-27] MEDS ORDERED: SODIUM CHLORIDE 0.9% 1000ML 1,000 ML IVS ONE (18:11)
[2017-10-27] MEDS ORDERED: SODIUM CHLORIDE 0.9% 250ML 250 ML IVS ONE (18:53)
[2017-10-27] MEDS ORDERED: ENOXAPARIN SODIUM 40 MG/0.4 ML SYG SUBCU ONE (20:58)
--- NOTE | 2017-10-27 21:22 | HP ---
SUPERVISING PHYSICIAN: Nirav Carroll MD CHIEF COMPLAINT: Shortness of breath and anxiety. HISTORY OF PRESENT ILLNESS: This is a 57-year-old male patient with a history of asthma/chronic obstructive pulmonary disease who came into the Emergency Room with shortness of breath and anxiety for the last two to three days. He also states he has had a cough with thin sputum production and a possible fever , but he did not actually take his temperature at all. He has not had any chills, but he has had increased anxiety. He states the anxiety coincided with his development of shortness of breath. He does have anxiety on a normal basis , but it was greater than normal during this shortness of breath episode. He came in the Emergency Room and was evaluated by the Emergency Room physician and was found to have findings consistent with chronic obstructive pulmonary disease exacerbation. His chest x-ray was normal with no infiltrates. His CBC and chemistries were pretty much unremarkable. On examination, he was very, very diminished with some faint expiratory wheezing. He was given nebulizer therapy as well as 40 mg of prednisone. He was referred for admission at that time. I did examine the patient in the Emergency Room. He continued to be dyspneic and I ordered 125 mg of Solu-Medrol. At that point, I wrote admission orders and admitted him to the hospital. PAST MEDICAL HISTORY: 1. Seizure disorder. 2. Asthma. 3. Chronic obstructive pulmonary disease. 4. Psoriasis. 5. Left eye blindness. PAST SURGICAL HISTORY: 1. Bronchoscopy at 14 years old secondary to aspirating a Pop-Tart. MEDICATIONS: 1. Phenytoin 200 mg p.o. b.i.d. 2. Aspirin 325 mg daily. 3. Nitroglycerin sublingual tabs q.5 minutes p.r.n. for chest pain. 4. Albuterol nebulizer. 5. Albuterol inhaler. ALLERGIES: NO KNOWN DRUG ALLERGIES. FAMILY HISTORY: Stroke, chronic obstructive pulmonary disease and hypertension. SOCIAL HISTORY: He is a 40 pack year smoker. No alcohol, no illicit drugs. REVIEW OF SYSTEMS: CONSTITUTIONAL: Possible fever. No chills. No recent weight loss or weight gain. HEENT: No headaches, vision changes, ear pain, nasal congestion, but he does complain of a little bit of throat discomfort with his nebulizer therapy. RESPIRATORY: He does have a cough. No hemoptysis, no pleuritic chest pain. CARDIOVASCULAR: No chest pain, palpitations or peripheral edema. GASTROINTESTINAL: No nausea, vomiting, diarrhea, constipation or abdominal pain. GENITOURINARY: No dysuria, frequency or flank pain. INTEGUMENTARY: Positive for psoriasis. ENDOCRINE: No polydipsia, polyuria, polyphagia. No heat or cold intolerance. PSYCHIATRIC: Positive for anxiety, but no depression. MUSCULOSKELETAL: No back pain, muscle cramps or joint swelling. HEMATOLOGIC: No easy bruising and no transfusion reactions in the past. PHYSICAL EXAMINATION: VITAL SIGNS: Blood pressure 134/98. Heart rate 97. Respiratory rate 24. Temperature 98.1. Oxygen saturation 93%. GENERAL: Mr. Milner is a 57-year-old, male patient in moderate respiratory distress at this time. HEENT: Normocephalic, atraumatic. Pupils are equal and reactive. No nasal drainage. Throat with moist buccal mucosa. NECK: Supple. Midline trachea. No jugular venous distention. CHEST: Symmetrical with equal rise and fall of the chest with inspiration and expiration. Lung sounds are very diminished with a slight expiratory wheeze. CARDIOVASCULAR: Regular rate and rhythm. Normal S1, S2. ABDOMEN: Soft. Positive bowel sounds. No tenderness to palpation. No detectable organomegaly. GENITOURINARY: Deferred. EXTREMITIES: Lower extremities with no edema. Positive peripheral pulses at 2+ . Capillary refill less than 2 seconds. NEUROLOGIC: The patient is alert and oriented. Moves all extremities. Extraocular muscles are intact. LABORATORY: Labs and films have been reviewed and show a sodium 138, potassium 3.9, chloride 98, CO2 30, BUN 8, creatinine 0.58, glucose 109, calcium 9.2. White blood cell count 9.6, hemoglobin 15.8, hematocrit 47.5, platelet count 374. Chest x-ray reviewed and showed no acute infiltrate. ASSESSMENT: 1. Chronic obstructive pulmonary disease exacerbation. 2. Anxiety. 3. History of seizure disorder. 4. History of psoriasis. PLAN: 1. Chronic obstructive pulmonary disease exacerbation will be addressed with nebulizer therapy as well as IV steroids. We will empirically place him on some azithromycin. 2. Given the patient's anxiety, I feel like this is likely due to his chronic obstructive pulmonary disease exacerbation. We will monitor this and if he needs some antianxiety medications, we can add this to his regimen. 3. I have ordered a Dilantin level to ensure that he is therapeutic. We will continue his Dilantin based on this. 4. DVT and GI distress/ulcer prophylaxis have been ordered as well. [facility][id number] [facility]
[2017-10-27] MEDS ORDERED: ALBUTEROL SULFATE 2.5 MG/3 ML VIAL NEB PRN (21:49)
[2017-10-27] MEDS ORDERED: MORPHINE SULFATE INJ 10 MG/ML VIAL IV PRN (21:58)
[2017-10-27] MEDS ORDERED: SODIUM CHLORIDE 0.9% (FLUSH) 10 ML SYG IV PRN (22:06)
[2017-10-27] MEDS: PHENYTOIN SODIUM CAP EXTENDED 100 MG CAP PO SCH (22:27)
[2017-10-27] MEDS ORDERED: AZITHROMYCIN 250 MG TAB PO ONE (23:04)
[2017-10-28] MEDS: methylPREDNISolone SODIUM SUC 125 MG/2 ML VIAL IV SCH ×4 (00:01→17:37)
[2017-10-28] MEDS: IPRATROPIUM/ALBUTEROL 3 ML VIAL NEB SCH ×6 (04:30→19:50)
[2017-10-28] MEDS: PANTOPRAZOLE SODIUM TAB 40 MG PO SCH (06:14)
--- NOTE | 2017-10-28 07:03 | RAD ---
EXAM: Single view chest. INDICATION: COPD. COMPARISON: Chest x-ray: 10/27/2017. FINDINGS: Cardiac silhouette: Unremarkable. Gale: Unremarkable. Lobar consolidation: None. Pleural effusion: None. Pneumothorax: None. Other: Lungs are emphysematous Bones: Unremarkable. Other: None. IMPRESSION: Emphysematous appearing lungs Electronically signed by: Daniel Hernandes MD 10/28/2017 7:02 AM ASSISTANT [employer] Workstation: [id number]
[2017-10-28] MEDS: PHENYTOIN SODIUM CAP EXTENDED 100 MG CAP PO SCH ×2 (08:29→20:40)
[2017-10-28] MEDS: ASPIRIN TABLET 325 MG TAB PO SCH (08:29)
[2017-10-28] MEDS: ENOXAPARIN SODIUM 40 MG/0.4 ML SYG SUBCU SCH (09:16)
[2017-10-28] MEDS ORDERED: IV SET AND CAP CHANGE INJ INJ SCH (09:30)
[2017-10-28] MEDS ORDERED: guaiFENesin ER TAB 600 MG TAB ONE (13:44)
[2017-10-28] MEDS: guaiFENesin ER TAB 600 MG TAB PO SCH ×2 (13:45→20:40)
--- NOTE | 2017-10-28 14:06 | PN ---
SUPERVISING PHYSICIAN: Nirav Carroll MD DATE: 10/28/17 SUBJECTIVE: The patient is lying his hospital bed. He still complains of shortness of breath and weakness, but he says he is some improved since yesterday. OBJECTIVE: VITAL SIGNS: Temperature 98. Heart rate 105. Blood pressure 121/ 74. Respiratory rate 20. O2 saturation 92% on room air. LUNGS: Diminished sounds throughout, but no wheezing and a few scattered rhonchi at the apices. CARDIAC: Regular rate and rhythm. ABDOMEN: Soft, nondistended, nontender. Bowel sounds are positive. EXTREMITIES: No cyanosis, clubbing or edema. NEUROLOGIC: Awake, alert and oriented times three, but he is anxious. LABORATORY: There are no labs to report today. Chest x-ray per radiologic interpretation shows emphysematous lungs. All other labs and films have been reviewed via the EMR. ASSESSMENT: 1. Chronic obstructive pulmonary disease exacerbation with acute exacerbation. 2. Anxiety. 3. History of seizure disorder. 4. History of psoriasis. PLAN: We will continue present supportive care and continue good pulmonary hygiene. He has complained of congestion, so I have given him Mucinex and I have tapered his steroids down. I have also given him some mild benzodiazepines for the anxiety. His Dilantin level is therapeutic, so we will continue on his present dosage and I have encouraged him to stop smoking and if he continues to progress well, we will discharge him tomorrow. Dr. Carroll is the collaborating physician and available for consultation. [facility][id number] [facility]
[2017-10-28] MEDS: SODIUM CHLORIDE 0.9% (FLUSH) 10 ML SYG IV SCH (20:40)
[2017-10-29] MEDS: methylPREDNISolone SODIUM SUC 125 MG/2 ML VIAL IV SCH (00:10)
[2017-10-29] MEDS: IPRATROPIUM/ALBUTEROL 3 ML VIAL NEB SCH ×4 (00:15→11:53)
[2017-10-29] MEDS: PANTOPRAZOLE SODIUM TAB 40 MG PO SCH (06:12)
[2017-10-29] MEDS ORDERED: predniSONE 20 MG TAB ONE (07:00)
[2017-10-29] MEDS: guaiFENesin ER TAB 600 MG TAB PO SCH (08:17)
[2017-10-29] MEDS: ENOXAPARIN SODIUM 40 MG/0.4 ML SYG SUBCU SCH (08:18)
[2017-10-29] MEDS: PHENYTOIN SODIUM CAP EXTENDED 100 MG CAP PO SCH (08:18)
[2017-10-29] MEDS: ASPIRIN TABLET 325 MG TAB PO SCH (08:18)
[2017-10-29] MEDS: SODIUM CHLORIDE 0.9% (FLUSH) 10 ML SYG IV SCH (08:18)
[2017-10-29] MEDS ORDERED: predniSONE 20 MG TAB PO SCH (09:00)
[2017-10-29 09:55] VITALS: BP 104/71; TEMP 98.7; O2SAT 96
[2017-10-29] MEDS ORDERED: INFLUENZA VIRUS VACC (ADULT) 0.5 ML SYG IM ONE (11:36)
[2017-10-29] MEDS ORDERED: AZITHROMYCIN 250 MG TAB PO ONE (11:51)
--- NOTE | 2017-10-29 12:27 | DS ---
SUPERVISING PHYSICIAN: Nirav Carroll M.D. DISCHARGE DIAGNOSIS: 1. Chronic obstructive pulmonary disease with acute exacerbation. 2. Anxiety. 3. History of seizure disorder. 4. History of psoriasis. HISTORY OF PRESENT ILLNESS: This is a 57 year-old male patient who came into the Emergency Room due to shortness of breath and anxiety. He had had the problems 3 to 4 days prior to his admission. He had complaint of a cough with thin sputum and a subjective fever. There was no report of any chills but his anxiety was increased. When he became very shortness of breath, his anxiety worsened. In the Emergency Room, he was found to have an exacerbation of his COPD. His chest x-ray was normal with no infiltrates. His CBC and chemistries were basically within normal limits. He was somewhat diminished upon examination with some faint expiratory wheezing. He was given nebulizer therapy as well as 40 mg of prednisone. He was referred for admission. HOSPITAL COURSE: After admission, he continued to be dyspneic and was given 125 mg of Solu-Medrol. He was placed in Observation at the hospital. He does have a significant seizure disorder and his Dilantin level was 13.2. His steroids were tapered down. He was given Azithromycin. He continues to have bouts of extreme anxiety. He was given Clonazepam and that helped him rest a bit. Other than that, his vital signs are stable and he will be discharged home today. DISCHARGE PLAN: The patient will be discharged home in stable condition. He is to resume his previous medications as well as his previous activity. He is to increase his breathing treatments with shortness of breath. I have given him some extra Clonazepam until he can see Dr. Watkins as hospital followup on the 08 of November. He has also received a prednisone taper as well as 2 additional days of Azithromycin. He is to followup at the hospital or call the clinic for any further problems or complications. DISCHARGE MEDICATIONS: 1. Phenytoin. 2. Aspirin. 3. Nitroglycerin. 4. Albuterol sulfate nebulizers. 5. Albuterol inhaler. 6. Prednisone taper. 7. Azithromycin. 8. Clonazepam. Dr. Carroll is the collaborating physician available for consultation. #[id number] [facility]
== END 2017-10-29 12:37 | disposition home or self-care (01) ==
LOC: ER 16:05 → MS 20:43
PROVIDERS: ADMIT Nurse Practitioner; ATTEND Nurse Practitioner Acute Care
DX: J44.1 Chronic obstructive pulmonary disease with (acute) exacerbation (principal); F41.9 Anxiety disorder, unspecified; G40.909 Epilepsy, unspecified, not intractable, without status epilepticus; L40.9 Psoriasis, unspecified; J45.909 Unspecified asthma, uncomplicated; H54.62 Unqualified visual loss, left eye, normal vision right eye; F17.210 Nicotine dependence, cigarettes, uncomplicated; Z23 Encounter for immunization; Z79.82 Long term (current) use of aspirin; Z79.899 Other long term (current) drug therapy
CPT/HCPCS: 36415; 71010; 80053; 80185; 82550; 82553; 83880; 84484; 85025; 87040; 87502; 90674; 93005; 94640 ×8; 96372 ×2; 96374; 96376 ×2; 99284; G0008; G0378; J0456; J0696; J1650 ×3; J2930 ×6; J7030; J7050 ×2; J7512 ×2; J7620 ×10; Q0144

== ENCOUNTER → 2017-11-30 | Outpatient (CLI) | payer MEDICARE | END | disposition home or self-care (01) | LOC: NC 13:02 | PROVIDERS: ATTEND Family Medicine | DX: G40.209 Localization-related (focal) (partial) symptomatic epilepsy and epileptic syndromes with complex partial seizures, not intractable, without status epilepticus (principal); Z12.5 Encounter for screening for malignant neoplasm of prostate; F31.9 Bipolar disorder, unspecified; J44.1 Chronic obstructive pulmonary disease with (acute) exacerbation; Z79.899 Other long term (current) drug therapy | CPT/HCPCS: 80053; 80061; 80185; 85025; G0103 ==

== ENCOUNTER 2017-12-14 13:38 | Emergency (ER) | payer MEDICARE ==
--- NOTE | 2017-12-14 13:50 | ED.PDOC ---
History of Present Illness - General Chief Complaint: Drug or Alcohol Abuse Stated Complaint: increased heart rate after meth use Time Seen by Provider: 12/14/17 13:47 Source: patient, RN notes reviewed, Vital Signs reviewed Additional Information: 57 YEAR OLD FROM HOME SENT BY HOME HEALTH NURSE FOR EVALUATION OF TACHYCARDIA PT HAS KNOWN HISTORY OF COPD AND SEIZURE DISORDER HE ADMITS TO DOING METH LAST NIGHT HE HAS NO SYMPTOMS FROM THE TACHYCARDIA HE HAS NO CHEST PAIN NO INCREASING SHORTNESS OF BREATH NO SYNCOPE NO DIZZINESS - History of Present Illness Timing/Duration: constant Severity: mild Improving Factors: nothing Associated Symptoms: denies symptoms Allergies/Adverse Reactions: Allergies NO KNOWN ALLERGY Allergy (Verified 12/14/17 13:51) Home Medications: Ambulatory Orders Phenytoin Sodium Extended 200 mg PO BID 07/27/17 Albuterol Inhaler [Ventolin Hfa Inhaler] 8 gm INH Q4H PRN #64 inh 07/28/17 Albuterol Sulfate Nebs [Proventil Nebs] 2.5 mg INH Q4H PRN #100 vial 07/28/17 Aspirin 325 mg PO DAILY 07/28/17 Nitroglycerin 0.4 mg Tab [Nitrostat] 1 ea SL Q5MIN PRN #1 bottle 07/28/17 Azithromycin [Zithromax] 500 mg PO DAILY #2 tab 10/29/17 Clonazepam 0.5 mg PO BID PRN #10 tab 10/29/17 Prednisone See Taper PO DAILY #30 breanna 10/29/17 Review of Systems - Review of Systems Constitutional: States: no symptoms reported EENTM: States: no symptoms reported Respiratory: States: no symptoms reported Cardiology: States: no symptoms reported Gastrointestinal/Abdominal: States: no symptoms reported Genitourinary: States: no symptoms reported Musculoskeletal: States: no symptoms reported Skin: States: no symptoms reported Neurological: States: no symptoms reported Endocrine: States: no symptoms reported Hematologic/Lymphatic: States: no symptoms reported Past Medical History (General) - Patient Medical History Hx Seizures: Yes Hx Stroke: No Hx Asthma: No Hx of COPD: Yes Hx Cardiac Disorders: No Hx Congestive Heart Failure: No Hx Pacemaker: No Hx Hypertension: No Hx Diabetes: No Hx MRSA: No - Vaccination History Hx Influenza Vaccination: No - Social History Hx Tobacco Use: Yes Hx Alcohol Use: Yes - when younger Hx Substance Use: No Hx Physical Abuse: No Hx Emotional Abuse: No Family Medical History - Family History Father Family History: Unknown Name: Irving Mitchell Age (years): 70 Living Status: Age at (years of age): 70 Cause of : Stroke Hx Family Asthma: Yes - parents,brother Hx Family Congestive Heart Failure: No Hx Family Hypertension: Yes - Mother Hx Family Stroke: Yes - Father brother Hx Cardiac Disease: No Hx Family Diabetes: No Hx Family Cancer: Yes - Aunt breast cancer. Uncles colon cancer. Physical Exam - Physical Exam General Appearance: Alert, No apparent distress Eye Exam: bilateral normal Ears, Nose, Throat: hearing grossly normal, normal ENT inspection, normal pharynx Neck: non-tender, full range of motion, supple Respiratory: chest non-tender, no respiratory distress, no accessory muscle use , rhonchi Cardiovascular/Chest: normal peripheral pulses, regular rate, rhythm, no edema, no gallop, tachycardia Peripheral Pulses: radial,right: 2+, radial,left: 2+, femoral,right: 2+, femoral ,left: 2+ Back Exam: normal inspection, no CVA tenderness Extremity: normal range of motion, non-tender, normal inspection 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 Copy, Patient Portal Self Enrollment Instructions: DI for Drug Overdose in Adults Diet: resume usual diet Activity: walking as tolerated - DO NOT USE METH Referrals: Demetrius Watkins MD [Primary Care Provider] - 1-2 Weeks Home Medications: Ambulatory Orders Phenytoin Sodium Extended 200 mg PO BID 07/27/17 Albuterol Inhaler [Ventolin Hfa Inhaler] 8 gm INH Q4H PRN #64 inh 07/28/17 Albuterol Sulfate Nebs [Proventil Nebs] 2.5 mg INH Q4H PRN #100 vial 07/28/17 Aspirin 325 mg PO DAILY 07/28/17 Nitroglycerin 0.4 mg Tab [Nitrostat] 1 ea SL Q5MIN PRN #1 bottle 07/28/17 Azithromycin [Zithromax] 500 mg PO DAILY #2 tab 10/29/17 Clonazepam 0.5 mg PO BID PRN #10 tab 10/29/17 Prednisone See Taper PO DAILY #30 breanna 10/29/17
[2017-12-14] MEDS ORDERED: METOPROLOL SUCCINATE XL 50 MG TAB PO ONE (14:16)
[2017-12-14] MEDS ORDERED: IPRATROPIUM/ALBUTEROL 3 ML VIAL NEB ONE (15:46)
[2017-12-14] MEDS ORDERED: DEXAMETHASONE INJ 10 MG/ML VIAL IM ONE (15:46)
[2017-12-14 17:36] VITALS: BP 130/93; TEMP 98.9; O2SAT 96
== END 2017-12-14 17:37 | disposition home or self-care (01) ==
LOC: ER 13:38
DX: R00.0 Tachycardia, unspecified (principal); J44.9 Chronic obstructive pulmonary disease, unspecified; G40.909 Epilepsy, unspecified, not intractable, without status epilepticus; F10.10 Alcohol abuse, uncomplicated; F19.10 Other psychoactive substance abuse, uncomplicated; Z87.891 Personal history of nicotine dependence; Z79.82 Long term (current) use of aspirin
CPT/HCPCS: 80307; 93005; 94640; J1100; J7620

== ENCOUNTER 2018-06-18 00:16 | Inpatient (IN) | payer MEDICARE ==
[2018-06-18] MEDS ORDERED: ALBUTEROL SULFATE 2.5 MG/3 ML VIAL NEB ONE ×3 (00:22→01:40)
[2018-06-18] MEDS ORDERED: IPRATROPIUM/ALBUTEROL 3 ML VIAL NEB ONE ×2 (00:22→00:23)
[2018-06-18] MEDS ORDERED: methylPREDNISolone SODIUM SUC 125 MG/2 ML VIAL IV ONE (00:41)
--- NOTE | 2018-06-18 01:15 | RAD ---
EXAM DESCRIPTION: Chest,1 View CLINICAL HISTORY:57 years Male, wt loss sob Comparison: October 28, 2017 FINDINGS: Lung hyperinflation suggestive of COPD. Old left-sided rib fractures. No pleural effusion. No pneumothorax. Cardiac and mediastinal silhouette is unremarkable. No acute osseous abnormality. Soft tissues are unremarkable. IMPRESSION: No acute findings. No focal lung consolidation. COPD. Electronically signed by: Zev Morales MD 06/18/2018 1:14 AM CDT
[2018-06-18] MEDS ORDERED: cefTRIAXone SODIUM 1 GM in SODIUM CHL 0.9% 50ML MIN-BAG+ 50 ML IVPB ONE (01:39)
[2018-06-18] MEDS ORDERED: MORPHINE SULFATE INJ 10 MG/ML VIAL IV ONE (01:40)
[2018-06-18] MEDS ORDERED: AZITHROMYCIN IV 500 MG in SODIUM CHLORIDE 0.9% 250ML 250 ML IVPB ONE (01:40)
[2018-06-18] MEDS ORDERED: MONTELUKAST 10 MG TAB PO ONE (01:40)
--- NOTE | 2018-06-18 02:34 | ED.PDOC ---
History of Present Illness - General Chief Complaint: Respiratory Problem Stated Complaint: Dyspnea x 30 minutes, body aches Time Seen by Provider: 06/18/18 00:17 Source: patient Exam Limitations: clinical condition - History of Present Illness Initial Comments: The patient is a 57-year-old male presenting to the emergency room secondary to severe shortness of breath. He does have long-term shortness of breath secondary to COPD. He does still smoke. He has had significant weight loss over the last year. His shortness of breath got worse about an hour prior to arrival. No fevers. Cough is nonproductive. No chest pain. No palpitations. No syncope but questionable near syncope. No rash. Timing/Duration: unsure Severity: severe Improving Factors: nothing Worsening Factors: movement Associated Symptoms: cough, malaise, shortness of breath, weakness Allergies/Adverse Reactions: Allergies NO KNOWN ALLERGY Allergy (Verified 12/14/17 13:51) Home Medications: Ambulatory Orders Phenytoin Sodium Extended 200 mg PO BID 07/27/17 Albuterol Inhaler [Ventolin Hfa Inhaler] 8 gm INH Q4H PRN #64 inh 07/28/17 Albuterol Sulfate Nebs [Proventil Nebs] 2.5 mg INH Q4H PRN #100 vial 07/28/17 Aspirin 325 mg PO DAILY 07/28/17 Nitroglycerin 0.4 mg Tab [Nitrostat] 1 ea SL Q5MIN PRN #1 bottle 07/28/17 Azithromycin [Zithromax] 500 mg PO DAILY #2 tab 10/29/17 Clonazepam 0.5 mg PO BID PRN #10 tab 10/29/17 Prednisone See Taper PO DAILY #30 breanna 10/29/17 Review of Systems - Review of Systems Constitutional: States: malaise, weakness EENTM: States: no symptoms reported Respiratory: States: cough, short of breath, wheezing Cardiology: States: no symptoms reported Gastrointestinal/Abdominal: States: no symptoms reported Genitourinary: States: no symptoms reported Musculoskeletal: States: no symptoms reported Skin: States: no symptoms reported Neurological: States: anxiety Endocrine: States: unexplained weight loss All other Systems: No Change from Baseline Past Medical History (General) - Patient Medical History Hx Seizures: Yes Hx Stroke: No Hx Asthma: No Hx of COPD: Yes Hx Cardiac Disorders: No Hx Congestive Heart Failure: No Hx Pacemaker: No Hx Hypertension: No Hx Diabetes: No Hx Cancer: No Hx Hepatitis C: No Hx MRSA: No Surgical History: no surgical history - Vaccination History Hx Tetanus, Diphtheria Vaccination: No Hx Influenza Vaccination: No Hx Pneumococcal Vaccination: No Immunizations Up to Date: Yes - Social History Hx Tobacco Use: Yes Hx Alcohol Use: No Hx Substance Use: No Hx Physical Abuse: No Hx Emotional Abuse: No Family Medical History - Family History Father Family History: Unknown Name: Irving Mitchell Age (years): 70 Living Status: Age at (years of age): 70 Cause of : Stroke Hx Family Asthma: Yes - parents,brother Hx Family Congestive Heart Failure: No Hx Family Hypertension: Yes - Mother Hx Family Stroke: Yes - Father brother Hx Cardiac Disease: No Hx Family Diabetes: No Hx Family Cancer: Yes - Aunt breast cancer. Uncles colon cancer. Physical Exam - Physical Exam General Appearance: Alert, Anxious, Obvious distress, Ill Appearing, Other - the patient is in obvious severe respiratory distress. He is only able to get out one word at a time. Breath sounds are barely audible with the stethoscope. Tripoding in position. He has significant accessory muscle use and nasal flaring. He also has significant wasting. Eye Exam: bilateral normal Ears, Nose, Throat: hearing grossly normal Neck: full range of motion, supple Respiratory: respiratory distress, decreased breath sounds, accessory muscle use , rales, rhonchi, wheezing - findings scattered, other - severely decrreased breath sounds bilaterally Cardiovascular/Chest: no edema, tachycardia Peripheral Pulses: radial,right: 2+, radial,left: 2+, dorsalis pedis,right: 2+, dorsalis pedis,left: 2+ Gastrointestinal/Abdominal: non tender - the patient is very thin, soft Rectal Exam: deferred Extremity: normal range of motion, non-tender, normal inspection, no pedal edema Neurologic: woolen tester II-XII nml as tested, alert, oriented x 3, other - he is obviously anxious Skin Exam: pallor Comments: Vital Signs - 24 hr 06/18/18 06/18/18 00:19 00:24 Temperature 96.1 F L Pulse Rate [ 100 H 100 H monitor] Respiratory 26 H 26 H Rate Blood Pressure 146/89 [Left Arm] O2 Sat by Pulse 99 Oximetry Progress - Progress Progress: 06/18/18 02:39 the patient's a 57-year-old male emergency room secondary to an acute on chronic severe COPD exacerbation with marked respiratory distress. The patient has had proximally 5 nebulizer treatments and this finally relaxing somewhat. He has received IV steroids. He has received IV Rocephin and azithromycin. He has received oral Singulair. He has also received some IV morphine for air hunger. He is maintaining his oxygen saturations and air movement is improving somewhat. Continue oxygen for now. The patient has to stop smoking. The patient reports that he has had very significant weight loss over the last 6 months. This is most likely due to respiratory constraints. Certainly if his pulmonary status is improved and he continues to lose weight then additional workup for weight loss may be warranted. - Results/Orders Results/Orders: 06/18/18 00:21 Telemetry .CONTINUOUS normal sinus rhythm to sinus tachycardia Changes on chest x-ray consistent with COPD. No overt infiltrate or obvious mass. No evidence of congestive heart failure. 06/18/18 00:30 EKG STAT EKG shows a rate of 99 bpm. Normal sinus rhythm. Normal corrected QT interval. Poor R-wave progression in anterior leads. No acute ST segment changes concerning for immediate ischemia. 06/18/18 00:57 BLOOD CULTURE Stat Laboratory Results - last 24 hr 06/18/18 06/18/18 06/18/18 00:21 00:21 00:21 WBC 9.1 RBC 5.25 Hgb 14.5 Hct 45.6 MCV 86.8 MCH 27.7 MCHC 31.9 L RDW 14.0 Plt Count 304 MPV 7.7 Absolute Neuts (auto) 4.90 Absolute Lymphs (auto) 3.20 Absolute Monos (auto) 0.50 Absolute Eos (auto) 0.30 Absolute Basos (auto) 0.10 Neutrophils % 54.1 Lymphocytes % 35.4 Monocytes % 5.8 Eosinophils % 3.4 Basophils % 1.3 D-Dimer, Quantitative 0.19 Sodium 136 Potassium 4.0 Chloride 100 L Carbon Dioxide 29 Anion Gap 11.0 L BUN 9 Creatinine 0.64 BUN/Creatinine Ratio 14.1 Random Glucose 201 H Serum Osmolality 276.3 Lactic Acid Calcium 8.9 Total Bilirubin 0.3 AST 21 ALT 13 Alkaline Phosphatase 88 Creatine Kinase 76 CK-MB (CK-2) 3.8 CK-MB (CK-2) % Not Reportable Troponin I < 0.02 B-Natriuretic Peptide 9.2 Serum Total Protein 6.7 Albumin 4.1 Globulin 2.6 Albumin/Globulin Ratio 1.6 TSH 2.27 06/18/18 00:21 WBC RBC Hgb Hct MCV MCH MCHC RDW Plt Count MPV Absolute Neuts (auto) Absolute Lymphs (auto) Absolute Monos (auto) Absolute Eos (auto) Absolute Basos (auto) Neutrophils % Lymphocytes % Monocytes % Eosinophils % Basophils % D-Dimer, Quantitative Sodium Potassium Chloride Carbon Dioxide Anion Gap BUN Creatinine BUN/Creatinine Ratio Random Glucose Serum Osmolality Lactic Acid 0.7 Calcium Total Bilirubin AST ALT Alkaline Phosphatase Creatine Kinase CK-MB (CK-2) CK-MB (CK-2) % Troponin I B-Natriuretic Peptide Serum Total Protein Albumin Globulin Albumin/Globulin Ratio TSH Departure - Departure Clinical Impression: Respiratory distress, acute, Acute exacerbation of COPD with asthma, Unexplained weight loss Disposition: Admit Patient Condition: Poor Referrals: Demetrius Watkins MD [Primary Care Provider] - 1-2 Weeks Home Medications: Ambulatory Orders Phenytoin Sodium Extended 200 mg PO BID 07/27/17 Albuterol Inhaler [Ventolin Hfa Inhaler] 8 gm INH Q4H PRN #64 inh 07/28/17 Albuterol Sulfate Nebs [Proventil Nebs] 2.5 mg INH Q4H PRN #100 vial 07/28/17 Aspirin 325 mg PO DAILY 07/28/17 Nitroglycerin 0.4 mg Tab [Nitrostat] 1 ea SL Q5MIN PRN #1 bottle 07/28/17 Azithromycin [Zithromax] 500 mg PO DAILY #2 tab 10/29/17 Clonazepam 0.5 mg PO BID PRN #10 tab 10/29/17 Prednisone See Taper PO DAILY #30 breanna 10/29/17 Decision To Admit - Decistion To Admit Decision to Admit Reason: Medical Nature Decision to Admit Date: 06/18/18 Decision to Admit Time: 02:41
--- NOTE | 2018-06-18 03:14 | HP ---
SUPERVISING PHYSICIAN: Demetrius Watkins MD CHIEF COMPLAINT: Shortness of breath\. HISTORY OF PRESENT ILLNESS: This is a 57-year-old male patient who has a history of frequent hospitalizations for exacerbation of his chronic obstructive pulmonary disease. He came to the Emergency Room due to severe shortness of breath. He said he had just walked across the room to his bathroom and he became so short of breath he could not catch his breath. He also got very anxious and he was brought to the Emergency Room. In the Emergency Room he was afebrile. His oxygen saturation went as low as the low 90s but he was severely tachypneic and only spoke in short phrases. His other vital signs were within normal limits. He was given some Solu-Medrol and some DuoNeb as well as morphine and Singulair. He was also started on Ceftriaxone as well as Azithromycin. His tachypnea improved somewhat after breathing treatments but within an hour or so his complaints of shortness of breath worsened, his tachypnea worsened and I was called for hospital admission due to an exacerbation of his chronic obstructive pulmonary disease. PAST MEDICAL HISTORY: 1. Seizure disorder. 2. Asthma. 3. Chronic obstructive pulmonary disease. 4. Psoriasis. 5. Left eye blindness. PAST SURGICAL HISTORY: 1. Bronchoscopy at age14 due to aspiration of a Pop-Tart. MEDICATIONS: 1. Dilantin. 2. Aspirin. 3. Nitroglycerin. 4. Albuterol. ALLERGIES: NO KNOWN DRUG ALLERGIES. SOCIAL HISTORY: He lives in [place]. He smokes approximately one pack of cigarette per day and he also smokes cigars occasionally. There is no known alcohol or illicit drug use. REVIEW OF SYSTEMS: CONSTITUTIONAL: Possible for weight loss and [id number]. Negative for fever. . HEENT: Negative for vision vision changes, sore throat, ear pain, or sinus symptoms. . RESPIRATORY: As per history of present illness. . CARDIOVASCULAR: Negative for chest pain, tachycardia and palpitations. GASTROINTESTINAL: Negative for nausea, vomiting, diarrhea, constipation. GENITOURINARY: Negative for hematuria, dysuria, polyuria. MUSCULOSKELETAL: Negative for myalgias, arthralgias. SKIN: Negative for lesions or rashes. NEUROLOGICAL: Positive for anxiety. He does have a seizure disorder but has had no seizures in several years. Negative for headaches. PHYSICAL EXAMINATION: VITAL SIGNS: He is afebrile;. Heart rate 98, blood pressure 124/73. Respiratory rate 28. Oxygen saturation 94% on 2 liters nasal cannula. GENERAL: This is a 57-year-old cachectic male who is laying in his hospital bed. He is in moderate respiratory distress. HEENT: Normocephalic, atraumatic. Oropharynx is clear. NECK: Supple without mass. . CHEST: Breath sounds are diminished throughout. He does have a mild expiratory wheeze through all lung malcolm. Chest has equal rise and fall of the chest with inspiration and expiration. He is tachypneic and he only speaks in short phrases due to his shortness of breath. CARDIOVASCULAR: Regular rate and rhythm. ABDOMEN: Soft, nondistended, non-tender. Bowel sounds are positive. EXTREMITIES: No cyanosis, clubbing, or edema. NEUROLOGIC: The patient is alert and oriented but very anxious. LABORATORY: CBC is basically within normal limits. D-dimer is 0.19. Complete metabolic panel is within normal limits with the exception that his chloride is slightly low at 100. Glucose slightly elevated at 201. Lactic acid 0.7. Urinalysis is within normal limits with the exception his urine protein is 100 and urine glucose is 250. Chest x-ray shows no acute findings of focal lung consolidation. He does have chronic obstructive pulmonary disease. All other labs and films have been reviewed via the EMR. ASSESSMENT: 1. Chronic obstructive pulmonary disease with acute exacerbation in a with frequent hospitalizations for chronic obstructive pulmonary disease as in a patient that continues to smoke. 2. Anxiety. 3. History of seizure disorder on Dilantin. 4. History of psoriasis. PLAN: We will admit patient to the hospital for exacerbation of chronic obstructive pulmonary disease. I will restart his home medicine and will give him some benzodiazepines for his anxiety. I started him on scheduled DuoNeb and put him on p.r.n. albuterol with aggressive pulmonary hygiene. He has had blood cultures drawn and will also be on a steroid taper. He refused any anticholinergics, LABA or inhaled corticosteroids. He said he would not buy those so I will leave him on DuoNeb for now. We talked at length about compliance for chronic obstructive pulmonary disease as well as smoking cessation and he said at this time that he would continue with the treatment as randall been prescribed for him. I will repeat his labs in the morning and will continue to monitor closely and followup as needed. Dr. Watkins is the collaborating physician available for consultation. #[id number] [facility]
[2018-06-18] MEDS ORDERED: SODIUM CHLORIDE 0.9% 250ML 250 ML ONE ×2 (03:23→19:55)
[2018-06-18] MEDS ORDERED: SODIUM CHL 0.9% 50ML MIN-BAG+ 50 ML IVPB ONE ×2 (03:23→19:55)
[2018-06-18] MEDS ORDERED: AZITHROMYCIN IV 500 MG VIAL IVPB ONE ×2 (03:23→19:56)
[2018-06-18] MEDS ORDERED: cefTRIAXone SODIUM 1 GM VIAL ONE ×2 (03:23→19:56)
[2018-06-18] MEDS ORDERED: MONTELUKAST 10 MG TAB ONE (03:42)
[2018-06-18] MEDS ORDERED: ALBUTEROL SULFATE 2.5 MG/3 ML VIAL NEB PRN (03:56)
[2018-06-18] MEDS ORDERED: MORPHINE SULFATE INJ 10 MG/ML VIAL IV PRN (03:56)
[2018-06-18] MEDS ORDERED: GLUCAGON INJ 1 MG VIAL SUBCU PRN (04:06)
[2018-06-18] MEDS ORDERED: DEXTROSE 50% 25 GM/50 ML SYG IV PRN (04:06)
[2018-06-18] MEDS ORDERED: ENOXAPARIN SODIUM 40 MG/0.4 ML SYG SUBCU SCH (04:30)
[2018-06-18] MEDS: IV SET AND CAP CHANGE INJ INJ SCH (04:44)
[2018-06-18] MEDS: SODIUM CHLORIDE 0.9% (FLUSH) 10 ML SYG IV PRN ×3 (06:02→23:10)
[2018-06-18] MEDS: PANTOPRAZOLE SODIUM IV 40 MG VIAL IV SCH (06:02)
[2018-06-18] MEDS: methylPREDNISolone SODIUM SUC 125 MG/2 ML VIAL IV SCH ×3 (06:02→22:15)
[2018-06-18] MEDS: IPRATROPIUM/ALBUTEROL 3 ML VIAL NEB SCH ×4 (07:35→20:38)
[2018-06-18] MEDS: INSULIN LISPRO 100 UNITS/ML PEN SUBCU SCH ×4 (07:44→21:00)
[2018-06-18] MEDS ORDERED: PHENYTOIN SODIUM CAP EXTENDED 100 MG CAP PO ONE (09:00)
[2018-06-18] MEDS: PHENYTOIN SODIUM CAP EXTENDED 100 MG CAP PO SCH ×3 (09:28→20:52)
[2018-06-18] MEDS: SODIUM CHLORIDE 0.9% (FLUSH) 10 ML SYG IV SCH ×2 (09:28→20:53)
[2018-06-18] MEDS: ACETAMINOPHEN 325 MG TAB PO PRN ×2 (11:00→22:01)
[2018-06-18] MEDS: ENOXAPARIN SODIUM 40 MG/0.4 ML SYG SUBCU SCH (20:52)
[2018-06-18] MEDS: cefTRIAXone SODIUM 1 GM in SODIUM CHL 0.9% 50ML MIN-BAG+ 50 ML IVPB SCH (23:10)
[2018-06-19] MEDS: AZITHROMYCIN IV 500 MG in SODIUM CHLORIDE 0.9% 250ML 250 ML IVPB SCH (00:03)
[2018-06-19] MEDS: PANTOPRAZOLE SODIUM IV 40 MG VIAL IV SCH (06:22)
[2018-06-19] MEDS: SODIUM CHLORIDE 0.9% (FLUSH) 10 ML SYG IV PRN (06:23)
[2018-06-19] MEDS: methylPREDNISolone SODIUM SUC 125 MG/2 ML VIAL IV SCH ×3 (06:23→21:29)
--- NOTE | 2018-06-19 07:05 | RAD ---
Procedure: XR CHEST 2 VIEWS Exam Date: 06/19/2018 Ordering Provider: NATALEE TATUM Clinical Indication: Pneumonia Comparison: 06/18/2018 Findings: Cardiomediastinal silhouette is within normal limits. No focal lung consolidation. COPD/emphysema. No pleural effusion. No pneumothorax. No acute osseous abnormalities. Remote left rib fractures. Impression: 1. No acute abnormalities in the chest. Electronically signed by: Leon Barrera MD 06/19/2018 7:04 AM CDT
[2018-06-19] MEDS: INSULIN LISPRO 100 UNITS/ML PEN SUBCU SCH ×4 (07:36→20:57)
[2018-06-19] MEDS: SODIUM CHLORIDE 0.9% (FLUSH) 10 ML SYG IV SCH ×2 (08:41→20:58)
[2018-06-19] MEDS: PHENYTOIN SODIUM CAP EXTENDED 100 MG CAP PO SCH ×2 (08:41→21:22)
[2018-06-19] MEDS: IPRATROPIUM/ALBUTEROL 3 ML VIAL NEB SCH ×4 (08:43→20:35)
--- NOTE | 2018-06-19 15:20 | PN ---
SUPERVISING PHYSICIAN: Nirav Carroll MD DATE: 06/19/18 SUBJECTIVE: The patient states he is still having some shortness of breath, but he is not wearing any oxygen and doing fairly well this morning. Once he gets a coughing episode, then he becomes very short of breath. He does continue to smoke. OBJECTIVE: VITAL SIGNS: Blood pressure 106/71. Heart rate 94. Respiratory rate 18. Temperature 98.3. Oxygen saturation 94%. GENERAL: Mr. Milner is a 57-year-old male patient in no distress at this time. NEUROLOGIC: Alert and oriented. LUNGS: Severely diminished with faint expiratory wheezes. CARDIOVASCULAR: Regular rate and rhythm. Normal S1, S2. ABDOMEN: Soft. Positive bowel sounds. EXTREMITIES: Lower extremities with no edema. LABORATORY: Labs are reviewed and can be seen via the EMR. Chest x-ray with no evidence of consolidation at this time. ASSESSMENT: 1. Chronic obstructive pulmonary disease exacerbation. 2. Continued nicotine dependency. 3. Anxiety. 4. History of seizure disorder. 5. History of psoriasis. PLAN: 1. We will continue with IV corticosteroids as well as nebulizer therapy. Continue on the empiric antibiotics as well. 2. If he continues to improve, I will reduce his steroids tomorrow, but for now he is still severely diminished with wheezing. [facility][id number] [facility]
[2018-06-19] MEDS: ENOXAPARIN SODIUM 40 MG/0.4 ML SYG SUBCU SCH (21:22)
[2018-06-19] MEDS: cefTRIAXone SODIUM 1 GM in SODIUM CHL 0.9% 50ML MIN-BAG+ 50 ML IVPB SCH (23:23)
[2018-06-19] MEDS ORDERED: AZITHROMYCIN IV 500 MG VIAL IVPB ONE (23:30)
[2018-06-19] MEDS ORDERED: SODIUM CHLORIDE 0.9% 250ML 250 ML ONE (23:30)
[2018-06-19] MEDS ORDERED: SODIUM CHL 0.9% 50ML MIN-BAG+ 50 ML IVPB ONE (23:30)
[2018-06-19] MEDS ORDERED: cefTRIAXone SODIUM 1 GM VIAL ONE (23:30)
[2018-06-20] MEDS: AZITHROMYCIN IV 500 MG in SODIUM CHLORIDE 0.9% 250ML 250 ML IVPB SCH ×2 (00:05→23:36)
[2018-06-20] MEDS: methylPREDNISolone SODIUM SUC 125 MG/2 ML VIAL IV SCH (06:20)
[2018-06-20] MEDS: PANTOPRAZOLE SODIUM TAB 40 MG PO SCH (06:34)
[2018-06-20] MEDS: INSULIN LISPRO 100 UNITS/ML PEN SUBCU SCH ×4 (07:43→20:51)
[2018-06-20] MEDS: IPRATROPIUM/ALBUTEROL 3 ML VIAL NEB SCH ×4 (08:55→20:06)
[2018-06-20] MEDS: SODIUM CHLORIDE 0.9% (FLUSH) 10 ML SYG IV SCH ×2 (09:31→21:26)
[2018-06-20] MEDS: PHENYTOIN SODIUM CAP EXTENDED 100 MG CAP PO SCH ×2 (09:31→21:25)
--- NOTE | 2018-06-20 09:53 | PN ---
SUPERVISING PHYSICIAN: Nirav Carroll MD DATE: 06/20/18 SUBJECTIVE: The patient states he is sore from coughing. Otherwise, he has not really had any policy change clerk the last 24 hours or so. He is able to tolerate his diet fairly well. OBJECTIVE: VITAL SIGNS: Blood pressure 105/70. Heart rate 91. Respiratory rate 18. Temperature 98.3. Oxygen saturation 91%. GENERAL: Mr. Milner is a 57-year-old male patient in no active distress at this time. NEUROLOGIC: Alert and oriented. LUNGS: Diminished still, but a little less diminished than they were yesterday. However, he still has expiratory wheezing. CARDIOVASCULAR: Regular rate and rhythm. Normal S1, S2. ABDOMEN: Soft. Positive bowel sounds. EXTREMITIES: Lower extremities with no edema. 2+ pulses. Capillary refill less than 2 seconds. ASSESSMENT: 1. Chronic obstructive pulmonary disease exacerbation. 2. Continued nicotine dependency. 3. Anxiety. 4. History of seizure disorder. 5. History of psoriasis. PLAN: Given his slow but gradual improvement, I will reduce his corticosteroids today. Continue nebulizer as well as empiric antibiotics. Hopefully with the current therapy, he can be discharged in the next 24 to 48 hours. #[id number] [facility]
[2018-06-20] MEDS: methylPREDNISolone SODIUM SUC 40 MG/ML VIAL IV SCH ×2 (13:23→21:30)
[2018-06-20] MEDS: ENOXAPARIN SODIUM 40 MG/0.4 ML SYG SUBCU SCH (21:25)
[2018-06-20] MEDS ORDERED: SODIUM CHL 0.9% 50ML MIN-BAG+ 50 ML IVPB ONE (22:55)
[2018-06-20] MEDS ORDERED: SODIUM CHLORIDE 0.9% 250ML 250 ML ONE (22:55)
[2018-06-20] MEDS ORDERED: cefTRIAXone SODIUM 1 GM VIAL ONE (22:56)
[2018-06-20] MEDS ORDERED: AZITHROMYCIN IV 500 MG VIAL IVPB ONE (22:56)
[2018-06-20] MEDS: cefTRIAXone SODIUM 1 GM in SODIUM CHL 0.9% 50ML MIN-BAG+ 50 ML IVPB SCH (22:58)
[2018-06-21] MEDS: methylPREDNISolone SODIUM SUC 40 MG/ML VIAL IV SCH ×3 (06:00→21:34)
[2018-06-21] MEDS: PANTOPRAZOLE SODIUM TAB 40 MG PO SCH (06:00)
[2018-06-21] MEDS: INSULIN LISPRO 100 UNITS/ML PEN SUBCU SCH ×4 (07:38→20:54)
[2018-06-21] MEDS: IPRATROPIUM/ALBUTEROL 3 ML VIAL NEB SCH ×4 (08:45→20:08)
[2018-06-21] MEDS: PHENYTOIN SODIUM CAP EXTENDED 100 MG CAP PO SCH ×2 (08:47→20:44)
[2018-06-21] MEDS: CHLORPHENIRAMINE W/HYDROCODONE 5 ML UD PO PRN ×2 (08:49→20:45)
[2018-06-21] MEDS: SODIUM CHLORIDE 0.9% (FLUSH) 10 ML SYG IV SCH ×2 (08:53→20:48)
--- NOTE | 2018-06-21 09:05 | RAD ---
EXAM DESCRIPTION: Chest,1 View CLINICAL HISTORY: 57 years Male, COPD. Shortness of breath. COMPARISON: 06/19/2018 IMPRESSION: Heart size and pulmonary vascularity are within normal limits. The lungs remain hyperexpanded with changes of advanced emphysema/COPD. Bibasilar pleural thickening versus trace pleural effusions again demonstrated. No confluent airspace consolidation, pleural effusion, or pneumothorax. Chronic healed left-sided rib fractures. No acute osseous abnormality. Electronically signed by: Sam Tan MD 06/21/2018 9:04 AM CDT
[2018-06-21] MEDS: IV SET AND CAP CHANGE INJ INJ SCH (12:30)
[2018-06-21] MEDS ORDERED: SODIUM CHLORIDE 0.9% 250ML 250 ML ONE (20:18)
[2018-06-21] MEDS ORDERED: SODIUM CHL 0.9% 50ML MIN-BAG+ 50 ML IVPB ONE (20:19)
[2018-06-21] MEDS ORDERED: cefTRIAXone SODIUM 1 GM VIAL ONE (20:19)
[2018-06-21] MEDS ORDERED: AZITHROMYCIN IV 500 MG VIAL IVPB ONE (20:20)
[2018-06-21] MEDS: ENOXAPARIN SODIUM 40 MG/0.4 ML SYG SUBCU SCH (20:44)
[2018-06-21] MEDS: cefTRIAXone SODIUM 1 GM in SODIUM CHL 0.9% 50ML MIN-BAG+ 50 ML IVPB SCH (22:33)
[2018-06-21] MEDS: AZITHROMYCIN IV 500 MG in SODIUM CHLORIDE 0.9% 250ML 250 ML IVPB SCH (23:58)
--- NOTE | 2018-06-22 00:27 | PN ---
DATE: 06/21/18 SUPERVISING PHYSICIAN: Nirav Carroll M.D. SUBJECTIVE: The patient is sitting up in his bed. He has no complaints of shortness of breath but he continues to be sore from coughing, but he is feeling somewhat better. OBJECTIVE: VITAL SIGNS: Temperature 98, heart rate 87, blood pressure 115/81, respiratory rate 24, O2 sat is 94% on 1 liter nasal cannula. RESPIRATORY: Diminished breath sounds throughout. No wheezing noted. CARDIAC: Regular rate and rhythm. GASTROINTESTINAL: Abdomen is soft, nondistended, non-tender. Bowel sounds are positive. EXTREMITIES: No cyanosis, clubbing or edema. NEUROLOGIC: He is awake, alert and oriented times three. LABORATORY: WBCs are 4.4 with hemoglobin that has dropped slightly to 11.9 and hematocrit of 36.5. Blood sugars have run between 90 and 138. Potassium is slightly low at 3.4 with calcium 8.1. Preliminary blood cultures show no growth after 3 days. Chest x-ray shows heart size and pulmonary vasculature within normal limits. The lungs remain hyperexpanded with changes of advanced emphysema/chronic obstructive pulmonary disease. All other labs and films have been reviewed via the EMR. ASSESSMENT: 1. Chronic obstructive pulmonary disease with exacerbation. 2. Continued nicotine dependency. 3. Anxiety. 4. History of seizure disorder. 5. History of psoriasis. PLAN: Will continue the present supportive care. I have given him some potassium supplementation. I have repeated his labs in the morning. I have discontinued his IV steroids and started him on oral steroids tomorrow. Hopefully he can be discharged tomorrow with close followup with Shoaib Lawrence. He will need a pulmonary consultation at some point although the patient has stressed that he will not take any additional medications. Will continue to monitor him closely and follow as needed. Dr. Carroll is the collaborating physician available for consultation. #[id number] [facility]
[2018-06-22] MEDS: PANTOPRAZOLE SODIUM TAB 40 MG PO SCH (05:52)
[2018-06-22] MEDS: INSULIN LISPRO 100 UNITS/ML PEN SUBCU SCH ×4 (07:25→21:40)
[2018-06-22] MEDS: IPRATROPIUM/ALBUTEROL 3 ML VIAL NEB SCH ×4 (08:39→20:18)
[2018-06-22] MEDS: PHENYTOIN SODIUM CAP EXTENDED 100 MG CAP PO SCH ×2 (09:00→20:54)
[2018-06-22] MEDS: predniSONE 20 MG TAB PO SCH (09:00)
[2018-06-22] MEDS: SODIUM CHLORIDE 0.9% (FLUSH) 10 ML SYG IV SCH ×2 (09:01→20:54)
--- NOTE | 2018-06-22 11:13 | PN ---
SUPERVISING PHYSICIAN: Nirav Carroll M.D. DATE: 06/22/18 SUBJECTIVE: The patient is lying in bed. He says he is very weak. He complains of that he has not gotten up out of bed, but he has been so weak that he has refused it. I have discussed with him if he would consider going to the long-term and he agreed to do that. OBJECTIVE: VITAL SIGNS: Afebrile. Heart rate 91. Blood pressure 136/83. Respiratory rate 24. It has gotten up as high as 27. O2 saturation is 91% on room air, 94 % on 1 liter nasal cannula. RESPIRATORY: Diminished breath sounds throughout. No wheezing noted at this time. CARDIAC: Regular rate and rhythm. NEUROLOGIC: He is awake, alert and oriented times three. LABORATORY: Electrolytes are basically within normal limits with creatinine 0.44. WBC 3.9, hemoglobin 12.2, hematocrit 37.8. Preliminary blood cultures show no growth after 4 days. All other labs and films have been reviewed via the EMR. ASSESSMENT: 1. Chronic obstructive pulmonary disease with acute exacerbation. 2. Continued nicotine dependency. 3. Anxiety. 4. History of seizure disorder. 5. History of psoriasis. PLAN: Will continue the present supportive care. The patient has agreed to go to the long-term, so we will initiate the referral there and hopefully he can be discharged there tomorrow. I have also ordered home oxygen qualification study. In case the patient goes home, he will be able to get oxygen. Earlier, I had not started him on any other inhalers because he said he would not get them filled, but because he is going to the long-term, I will start him on some Spiriva and Symbicort and he will continue those at the long-term. I have ordered a chest x-ray in the morning. I have not ordered labs as those are stable for now. I have encouraged good pulmonary hygiene as well as smoking cessation. I have offered him a nicotine patch, but he says no at this time. Otherwise, we will continue to monitor him closely and follow as needed. Dr. Carroll is the collaborating physician available for consultation. #[id number] [facility]
[2018-06-22] MEDS ORDERED: BUDESONIDE/FORMOTEROL 160/4.5 60 PUFF/6 GM INH INH ONE (11:31)
[2018-06-22] MEDS: TIOTROPIUM INHALER INH SCH (11:35)
[2018-06-22] MEDS ORDERED: ACETAMINOPHEN W/COD #3 TAB 1 EA TAB ONE (15:09)
[2018-06-22] MEDS: ACETAMINOPHEN W/COD #3 TAB 1 EA TAB PO PRN (15:27)
[2018-06-22] MEDS: CHLORPHENIRAMINE W/HYDROCODONE 5 ML UD PO PRN (16:02)
[2018-06-22] MEDS ORDERED: SODIUM CHLORIDE 0.9% 250ML 250 ML ONE (19:46)
[2018-06-22] MEDS ORDERED: SODIUM CHL 0.9% 50ML MIN-BAG+ 50 ML IVPB ONE (19:46)
[2018-06-22] MEDS ORDERED: AZITHROMYCIN IV 500 MG VIAL IVPB ONE (19:47)
[2018-06-22] MEDS ORDERED: cefTRIAXone SODIUM 1 GM VIAL ONE (19:47)
[2018-06-22] MEDS: BUDESONIDE/FORMOTEROL 160/4.5 60 PUFF/6 GM INH INH SCH (20:18)
[2018-06-22] MEDS: ENOXAPARIN SODIUM 40 MG/0.4 ML SYG SUBCU SCH (20:54)
[2018-06-22] MEDS: cefTRIAXone SODIUM 1 GM in SODIUM CHL 0.9% 50ML MIN-BAG+ 50 ML IVPB SCH (23:19)
[2018-06-23] MEDS: AZITHROMYCIN IV 500 MG in SODIUM CHLORIDE 0.9% 250ML 250 ML IVPB SCH (00:01)
[2018-06-23] MEDS: PANTOPRAZOLE SODIUM TAB 40 MG PO SCH (06:17)
[2018-06-23] MEDS: ACETAMINOPHEN W/COD #3 TAB 1 EA TAB PO PRN ×2 (06:25→10:25)
--- NOTE | 2018-06-23 06:56 | RAD ---
Chest 2 view on 06/23/2018 CLINICAL INDICATION: COPD COMPARISON: 06/21/2018 FINDINGS: Emphysematous changes of the lungs are noted. Old left rib fractures are again noted. Mild vascular calcification is noted in the aorta. The lungs are otherwise clear. Cardiac, hilar and mediastinal contours are within normal limits. Old compression fractures are noted in the midthoracic spine. IMPRESSION: No acute disease. Electronically signed by: Mau Mohan 06/23/2018 6:55 AM CDT
[2018-06-23] MEDS: INSULIN LISPRO 100 UNITS/ML PEN SUBCU SCH ×2 (07:08→11:48)
[2018-06-23] MEDS: PHENYTOIN SODIUM CAP EXTENDED 100 MG CAP PO SCH (08:01)
[2018-06-23] MEDS: predniSONE 20 MG TAB PO SCH (08:02)
[2018-06-23] MEDS: SODIUM CHLORIDE 0.9% (FLUSH) 10 ML SYG IV SCH (08:02)
[2018-06-23] MEDS: IPRATROPIUM/ALBUTEROL 3 ML VIAL NEB SCH ×2 (08:27→11:42)
[2018-06-23] MEDS: BUDESONIDE/FORMOTEROL 160/4.5 60 PUFF/6 GM INH INH SCH (08:27)
[2018-06-23] MEDS: TIOTROPIUM INHALER INH SCH (08:27)
[2018-06-23 10:14] VITALS: BP 118/79; TEMP 98.3
[2018-06-23] MEDS: CHLORPHENIRAMINE W/HYDROCODONE 5 ML UD PO PRN (10:19)
[2018-06-23 11:48] VITALS: O2SAT 98
--- NOTE | 2018-06-24 12:29 | DS ---
SUPERVISING PHYSICIAN: Nirav Carroll M.D. DISCHARGE DIAGNOSIS: 1. Chronic obstructive pulmonary disease with acute exacerbation. 2. Continued nicotine dependency. 3. Anxiety. 4. History of seizure disorder. 5. History of psoriasis. HISTORY OF PRESENT ILLNESS: This is a 57-year-old male patient who has been admitted to the hospital multiple times in the recent past due to exacerbation of his COPD. On the date of admission, he came to the Emergency Room due to severe shortness of breath. He said he had just walked across the room to his bathroom and he became so short of breath he could not get to the bathroom. He came to the Emergency Room. He was afebrile. His oxygen saturations were in the low 90s on room air but he was severely tachypneic and he only spoke in short phrases. His other vital signs were within normal limits. He was given some Ceftriaxone as well as some azithromycin, some Solu-Medrol IV and DuoNeb breathing treatments. His tachypnea slightly improved after administration of the medications, but he required several more breathing treatments before he was less short of breath. He continues to smoke. Due to his exacerbation of COPD, I was called for hospital admission. HOSPITAL COURSE: The patient was admitted to the hospital. He was placed on IV steroids and those were tapered down. He continued on azithromycin and Ceftriaxone. His blood cultures showed no growth after 5 days. Initially his WBCs were 9.1 but today they are 3.9. His H&H was stable at 12.2 and 37.8. Electrolytes remained basically within normal limits. He was slightly hypokalemic but he received oral supplementation. His chest x-ray showed no acute disease and was positive for emphysematous lungs. Due to the patient's advanced disease, he had a very difficult time ambulating. He required assistance with most of his daily activities. Assistant talked to the patient and he agreed to be admitted to [facility] at discharge. DISCHARGE PLAN: the patient will be discharged to [facility]. He is to followup with Dr. Cameron within the next 1 to 2 weeks. I have started him on an anticholinergic as well as a long acting beta agonist and an inhaled corticosteroid. Will also have DuoNeb and albuterol breathing treatments. I have also given him some Cefdinir as well as p.o. steroid taper. He is to return to the hospital or followup with Dr. Cameron for any problems or complications. DISCHARGE MEDICATIONS: 1. Phenytoin. 2. Albuterol. 3. Acetaminophen with codeine. 4. Symbicort. 5. Cefdinir. 6. DuoNeb. 7. Protonix. 8. Prednisone taper. 9. Spiriva. #[id number] and [id number] [facility]
== END 2018-06-23 13:19 | DRG 191 ==
LOC: ER 00:16 → MS 03:12 → OBSVTOIN 03:12
PROVIDERS: ADMIT Nurse Practitioner Acute Care; ATTEND Nurse Practitioner Acute Care
DX: J44.1 Chronic obstructive pulmonary disease with (acute) exacerbation (principal); R64 Cachexia; Z68.1 Body mass index [BMI] 19.9 or less, adult; R53.1 Weakness; F41.9 Anxiety disorder, unspecified; G40.909 Epilepsy, unspecified, not intractable, without status epilepticus; R09.02 Hypoxemia; E87.6 Hypokalemia; L40.9 Psoriasis, unspecified; H54.62 Unqualified visual loss, left eye, normal vision right eye; F17.210 Nicotine dependence, cigarettes, uncomplicated; Z79.82 Long term (current) use of aspirin; Z79.899 Other long term (current) drug therapy

== ENCOUNTER 2018-07-14 20:09 | Inpatient (IN) | payer MEDICARE ==
[2018-07-14] MEDS ORDERED: IPRATROPIUM/ALBUTEROL 3 ML VIAL NEB ONE ×3 (20:19→22:35)
--- NOTE | 2018-07-14 20:40 | ED.PDOC ---
History of Present Illness - General Chief Complaint: Respiratory Problem Stated Complaint: SOB AND GENERALIZED PAIN Time Seen by Provider: 07/14/18 20:19 Source: patient Exam Limitations: no limitations - History of Present Illness Initial Comments: Kurt Milner 57 y/o male brought by EMS with sob 30 minutes ago stating getting worse and decided to call EMS.He was seen 2 days ago here in ER but did not fill his prescribed medications.Also recently discharged from [place].He continue to smoke 3 cigarettes/dayDenies fever ,chest pains. Timing/Duration: 1/2 hour Severity: moderate Activities at Onset: rest Possible Cause: occasional episodes Improving Factors: nothing Worsening Factors: nothing Associated Symptoms: denies symptoms Respiratory Risk Factors: other - smoking Allergies/Adverse Reactions: Allergies NO KNOWN ALLERGY Allergy (Verified 07/14/18 20:23) Home Medications: Ambulatory Orders Phenytoin Sodium Extended 200 mg PO BID 07/27/17 Acetamin W/Cod #3 Tab [Tylenol w/CODEINE #3] 1 ea PO Q4H PRN #20 tab 06/23/18 Albuterol Sulfate Nebs [Proventil Nebs] 2.5 mg NEB Q4H PRN #120 vial 06/23/18 Budes/Formoterol INH 160/4.5 [Symbicort Inhaler 160/4.5] 2 puff INH RTBID #1 inh 06/23/18 Cefdinir 300 mg PO BID #14 capsule 06/23/18 Ipratropium/Albuterol [Duoneb] 3 ml NEB RTQID #120 vial 06/23/18 Pantoprazole Tablet [Protonix] 40 mg PO DAILY@0630 #30 tab 06/23/18 Prednisone See Taper PO DAILY #30 jl 06/23/18 Tiotropium R[place]olt Monohydrate [Spiriva Handihaler] 18 mcg IN DAILY #30 cap 02/05 Methylprednisolone [Medrol Dose Jl] 4 mg PO DAILY 6 Days #21 tab 07/12/18 Review of Systems - Review of Systems Constitutional: States: no symptoms reported EENTM: States: no symptoms reported Respiratory: States: see HPI Cardiology: States: no symptoms reported Gastrointestinal/Abdominal: States: no symptoms reported Genitourinary: States: no symptoms reported Musculoskeletal: States: no symptoms reported Skin: States: no symptoms reported Past Medical History (General) - Patient Medical History Hx Seizures: Yes Hx Stroke: No Hx Dementia: No Hx Asthma: No Hx of COPD: Yes Hx Cardiac Disorders: No Hx Congestive Heart Failure: No Hx Pacemaker: No Hx Hypertension: No Hx Thyroid Disease: No Hx Diabetes: No Hx Gastroesophageal Reflux: No Hx Renal Disease: No Hx Cancer: No Hx of HIV: No Hx Hepatitis C: No Hx MRSA: No Surgical History: other - bronchoscopy - Vaccination History Hx Tetanus, Diphtheria Vaccination: No Hx Influenza Vaccination: No Hx Pneumococcal Vaccination: No - Social History Hx Tobacco Use: Yes Hx Chewing Tobacco Use: No Hx Alcohol Use: No Hx Substance Use: No Hx Substance Use Treatment: No Hx Depression: Yes Hx Physical Abuse: No Hx Emotional Abuse: No Hx Suspected Abuse: No - Female History Patient : No Family Medical History - Family History Father Family History: Unknown Name: Irving Mitchell Age (years): 70 Living Status: Age at (years of age): 70 Cause of : Stroke Hx Family Asthma: Yes - parents,brother Hx Family Congestive Heart Failure: No Hx Family Hypertension: Yes - Mother Hx Family Stroke: Yes - Father brother Hx Cardiac Disease: No Hx Family Diabetes: No Hx Family Cancer: Yes - Aunt breast cancer. Uncles colon cancer. Physical Exam - Physical Exam General Appearance: Alert, No apparent distress, Other - emaciated Eyes, Ears, Nose, Throat Exam: normal ENT inspection Neck: non-tender, full range of motion, supple, normal inspection Respiratory: chest non-tender, decreased breath sounds Cardiovascular/Chest: normal peripheral pulses, regular rate, rhythm, no murmur Peripheral Pulses: radial,right: 2+, radial,left: 2+ Gastrointestinal/Abdominal: non tender, soft, no organomegaly Extremity: non-tender, no pedal edema, no calf tenderness Neurologic: alert, oriented x 3 Skin Exam: normal color, warm/dry Progress - Progress Progress: 07/14/18 20:56 Vital Signs - 8 hr 07/14/18 07/14/18 20:19 20:24 Temperature 97.8 F Pulse Rate [ 103 H MONITOR] Respiratory 26 H 26 H Rate Blood Pressure 149/96 [LA] O2 Sat by Pulse 96 Oximetry - Results/Orders Results/Orders: 07/14/18 20:45 EKG STAT 07/15/18 09:00 [facility] Daily [facility] Daily Laboratory Results - last 24 hr 07/14/18 07/14/18 07/14/18 20:40 21:01 21:01 WBC 8.7 RBC 4.75 Hgb 13.3 L Hct 39.8 L MCV 83.8 MCH 28.0 MCHC 33.4 RDW 13.3 Plt Count 259 MPV 6.5 L Absolute Neuts (auto) 6.20 Absolute Lymphs (auto) 1.80 Absolute Monos (auto) 0.50 Absolute Eos (auto) 0.10 Absolute Basos (auto) 0.10 Neutrophils % 71.5 Lymphocytes % 20.2 Monocytes % 6.3 Eosinophils % 1.2 Basophils % 0.8 PT 10.6 INR 1.06 PTT (SP) 25.4 D-Dimer, Quantitative 0.24 Sodium 135 Potassium 3.2 L Chloride 97 L Carbon Dioxide 28 Anion Gap 13.2 BUN 13 Creatinine 0.64 BUN/Creatinine Ratio 20.3 H Random Glucose 110 H Serum Osmolality 270.9 L Calcium 8.6 Magnesium 1.7 L Total Bilirubin 0.7 Direct Bilirubin < 0.1 Indirect Bilirubin 0.6 AST 16 ALT 16 Alkaline Phosphatase 70 Creatine Kinase 86 CK-MB (CK-2) 2.5 CK-MB (CK-2) % Not Reportable Troponin I 0.02 Serum Total Protein 6.2 L Albumin 4.1 Urine Color Urine Appearance Urine pH Ur Specific [place] Urine Protein Urine Glucose (UA) Urine Ketones Urine Blood Urine Nitrite Urine Bilirubin Urine Urobilinogen Ur Leukocyte Esterase Urine RBC Urine WBC Ur Epithelial Cells Urine Bacteria Urine Mucus Urine Opiates Screen Negative Urine Barbiturates Negative Phenytoin Ur Phencyclidine Scrn Negative U Amphetamin/Meth Scrn Negative U Benzodiazepines Scrn Negative U Cocaine Metab Screen Negative U Cannabinoids Screen Negative Ethyl Alcohol 07/14/18 07/14/18 07/14/18 21:01 21:12 21:19 WBC RBC Hgb Hct MCV MCH MCHC RDW Plt Count MPV Absolute Neuts (auto) Absolute Lymphs (auto) Absolute Monos (auto) Absolute Eos (auto) Absolute Basos (auto) Neutrophils % Lymphocytes % Monocytes % Eosinophils % Basophils % PT INR PTT (SP) D-Dimer, Quantitative Sodium Potassium Chloride Carbon Dioxide Anion Gap BUN Creatinine BUN/Creatinine Ratio Random Glucose Serum Osmolality Calcium Magnesium Total Bilirubin Direct Bilirubin Indirect Bilirubin AST ALT Alkaline Phosphatase Creatine Kinase CK-MB (CK-2) CK-MB (CK-2) % Troponin I Serum Total Protein Albumin Urine Color Yellow Urine Appearance Clear Urine pH 6.0 Ur Specific [place] 1.025 Urine Protein Trace Urine Glucose (UA) Negative Urine Ketones 40 H Urine Blood Negative Urine Nitrite Negative Urine Bilirubin Small H Urine Urobilinogen 0.2 Ur Leukocyte Esterase Negative Urine RBC 0 Urine WBC 0-1 Ur Epithelial Cells 0 Urine Bacteria 0 Urine Mucus Small Urine Opiates Screen Urine Barbiturates Phenytoin 24.1 H* Ur Phencyclidine Scrn U Amphetamin/Meth Scrn U Benzodiazepines Scrn U Cocaine Metab Screen U Cannabinoids Screen Ethyl Alcohol 0.00 - EKG/XRAY/CT EKG: Sinus, Tachy, nonspecific ST T wave Chg Comments: HR-95 XRAY: chest - copd changes Departure - Departure Clinical Impression: COPD exacerbation, Electrolyte imbalance, Elevated phenytoin level Time of Disposition: 00:00 Disposition: Admit Patient Condition: Fair Departure Forms: Patient Portal Self Enrollment Referrals: Demetrius Watkins MD [Primary Care Provider] - 1-2 Weeks Home Medications: Ambulatory Orders Phenytoin Sodium Extended 200 mg PO BID 07/27/17 Acetamin W/Cod #3 Tab [Tylenol w/CODEINE #3] 1 ea PO Q4H PRN #20 tab 06/23/18 Albuterol Sulfate Nebs [Proventil Nebs] 2.5 mg NEB Q4H PRN #120 vial 06/23/18 Budes/Formoterol INH 160/4.5 [Symbicort Inhaler 160/4.5] 2 puff INH RTBID #1 inh 06/23/18 Cefdinir 300 mg PO BID #14 capsule 06/23/18 Ipratropium/Albuterol [Duoneb] 3 ml NEB RTQID #120 vial 06/23/18 Pantoprazole Tablet [Protonix] 40 mg PO DAILY@0630 #30 tab 06/23/18 Prednisone See Taper PO DAILY #30 jl 06/23/18 Tiotropium [place] Monohydrate [Spiriva Handihaler] 18 mcg IN DAILY #30 cap 02/05 Methylprednisolone [Medrol Dose Jl] 4 mg PO DAILY 6 Days #21 tab 07/12/18 Decision To Admit - Decistion To Admit Decision to Admit Reason: Admit from ER Decision to Admit Date: 07/14/18 - D/W Elba Martin ANP/Hospitalist Decision to Admit Time: 23:57
[2018-07-14] MEDS ORDERED: methylPREDNISolone SODIUM SUC 125 MG/2 ML VIAL IV ONE (20:47)
--- NOTE | 2018-07-14 21:26 | RAD ---
EXAM DESCRIPTION: Chest,1 View CLINICAL HISTORY: 57 years Male sob COMPARISON: 07/12/2018. FINDINGS: The cardiomediastinal silhouette appears unremarkable. No consolidating infiltrates or pleural effusions. No pneumothorax. Rib fractures on the left which, unchanged. Lungs are hyperinflated compatible COPD. IMPRESSION: Pulmonary hyperinflation consistent with COPD No acute process Electronically signed by: Lou Mathur MD 07/14/2018 9:24 PM CDT
[2018-07-14] MEDS ORDERED: MAGNESIUM SULFATE PREMIX 2GM 2 GM in PREMIX BAG 1 BAG IVPB ONE (21:56)
[2018-07-14] MEDS ORDERED: POTASSIUM CHLORIDE 20 MEQ TAB PO ONE (21:57)
[2018-07-14] MEDS ORDERED: MAGNESIUM SULFATE PREMIX 2GM 50 ML IVPB ONE (22:08)
[2018-07-14] MEDS ORDERED: METHOCARBAMOL 750 MG TAB PO ONE (23:55)
[2018-07-15] MEDS ORDERED: busPIRone HCL 5 MG TAB ONE (00:16)
[2018-07-15] MEDS: busPIRone HCL 5 MG TAB PO SCH ×3 (00:19→21:17)
--- NOTE | 2018-07-15 01:21 | HP ---
SUPERVISING PHYSICIAN: Nirav Carroll MD CHIEF COMPLAINT: Shortness of breath. HISTORY OF PRESENT ILLNESS: This is a 57 year-old male patient who presented to the Emergency Room for shortness of breath. He has a significant history of chronic obstructive pulmonary disease and has frequent hospitalizations for chronic obstructive pulmonary disease. He continues to smoke cigarettes as well as he is very noncompliant with his medications. He was in the hospital approximately 4 weeks ago for exacerbation of chronic obstructive pulmonary disease. After he was discharged on that hospitalization he was discharged to [facility] and he stayed in that facility for 20 days. He was then discharged home. He had been home about 2 days and came to the Emergency Room on the . At that time, he was treated for anxiety, chronic obstructive pulmonary disease and shortness of breath. He then saw his PCP, Shoaib Lawrence, on . Medications were ordered but the patient was unable to picker and packer his steroids or his anti-anxiety medication. He does have a history of poor medical compliance but he did say he attempted to get his medications but the computers were down. He also has no transportation to get his medications so he returned to the Emergency Room last night due to shortness of breath. His vital signs on admission were a temperature of 97.4 with a heart rate of 88. His blood pressure was 128/79. Respiratory rate got as high as 27 and his 02 saturation after a breathing treatment and with oxygen at 2 liters nasal cannula was 94. It was reported by EMS that his 02 saturations were in the mid 80s. His lab showed a normal WBC of 8.7 with hemoglobin of 13.3 and hematocrit of 39.8. His D-dimer was 0.24, potassium was low at 3.2 with chloride of 97, magnesium 1.7. He received several Duoneb breathing treatments as well as some p.o. potassium replacement and some magnesium replacement. His Dilantin level was slightly elevated at 24.1 but the patient did admit to taking 300 mg of Dilantin that morning prior to coming to the Emergency Room and he normally takes 200 mg. His urine drug screen was negative. His chest x-ray showed emphysematous lungs and I was called for hospital admission. PAST MEDICAL HISTORY: 1. Seizure disorder. 2. Asthma. 3. Chronic obstructive pulmonary disease in a chronic smoker. 4. Psoriasis. 5. Left eye blindness. 6. Anxiety disorder. PAST SURGICAL HISTORY: 1. Bronchoscopy at age14 due to aspiration of a Pop-Tart. OUTPATIENT MEDICATIONS: 1. Dilantin. 2. Albuterol sulfate nebs. 3. Symbicort. 4. Protonix. 5. Spiriva. ALLERGIES: NO KNOWN DRUG ALLERGIES. SOCIAL HISTORY: He lives in [place]. He smokes approximately one-half to one pack of cigarettes per day as well as occasionally smoking cigars. There is no history of alcohol or illicit drug use. Since last admission he was in [facility] for 20 days and has been home only 4 days from is stay at that facility. REVIEW OF SYSTEMS: GENERAL: Negative for fever, fatigue or weight loss. HEENT: Negative for vision vision changes, sore throat, ear pain, or sinus symptoms. He is blind in the left eye. RESPIRATORY: As per history of present illness. . CARDIOVASCULAR: Negative for chest pain, tachycardia and palpitations. GASTROINTESTINAL: Negative for nausea, vomiting, diarrhea, constipation. MUSCULOSKELETAL: Negative for myalgias, arthralgias. SKIN: Negative for lesions or rashes. NEUROLOGICAL: Positive for anxiety and frequent seizures, although he has had not had a seizure in several weeks. He also has muscle cramping. Negative for headaches. PSYCHIATRIC: Positive for anxiety and panic attacks. Negative for depression or suicide thoughts. PHYSICAL EXAMINATION: VITAL SIGNS: Temperature 97.8, heart rate 92, blood pressure 120/80, respiratory rate 24, 02 saturation 94% on 2 liters nasal cannula. GENERAL: This is a 57 year-old male patient who is laying in his hospital bed. He is in moderate respiratory distress. HEENT: Atraumatic and normocephalic. Oropharynx is clear. He is blind in the left eye. NECK: Supple without mass. CHEST: Diminished breath sounds throughout. He does have a few scattered expiratory wheezes. There is equal rise and fall of the chest with inspiration and expiration and he is tachypneic. He can only speak in short phrases due to his shortness of breath. CARDIOVASCULAR: Regular rate and rhythm. ABDOMEN: Soft, non-tender and nondisplaced. Bowel sounds are positive. EXTREMITIES: No cyanosis, clubbing, or edema. NEUROLOGIC: He is awake, alert, and oriented x3. PSYCHIATRIC: He is very anxious but cooperative. LABORATORY: His followup labs this morning show an H&H of 12.5 and 37.8 with a left shift on differential of 81% neutrophils. Chemistries: His sodium is slightly low at 134 but his potassium has improved to 4.5. Chloride 99. BUN 10 , creatinine 0.58. His magnesium has improved from 1.7 to 2.1 after supplementation. All other labs and films have been reviewed via the EMR. ASSESSMENT: 1. Chronic obstructive pulmonary disease with acute exacerbation and patient with frequent hospitalizations due to poor medical compliance as well as a patient who continues to smoke. He has failed outpatient therapy as he has been seen in clinic and in ER in the past week. 2. Anxiety with panic attacks. 3. History of seizure disorder on Dilantin. 4. History of psoriasis. PLAN: We will admit the patient to the hospital. I will order aggressive pulmonary hygiene including nebulizer treatments. I will also restart his home medication including his Spiriva and his Symbicort. I will consult [employer]. He needs to be evaluated to go to [facility] as he has agreed to go to a long-term care facility. While he was in [facility] he had no exacerbations of his chronic obstructive pulmonary disease and he realizes that he is probably unsafe to be at home alone as he has no transportation and frequently does not get his medications filled. He is on a PPI for ulcer prophylaxis and Lovenox for DVT prophylaxis. I've also started him on an IV steroid taper. He does wear 02 at home and due to his anxiety disorder, I have started him on some scheduled Xanax but I have also started him on Celexa and he will need to continue that as an outpatient. Hopefully, we can control some of his panic attacks. We will continue to monitor him closely and followup as needed. Dr. Carroll is the collaborating physician available for consultation. #[id number] [facility]
[2018-07-15] MEDS ORDERED: ALBUTEROL SULFATE 2.5 MG/3 ML VIAL NEB PRN (01:26)
[2018-07-15] MEDS ORDERED: ACETAMINOPHEN 325 MG TAB PO PRN (01:26)
[2018-07-15] MEDS ORDERED: PANTOPRAZOLE SODIUM IV 40 MG VIAL IV SCH (01:30)
[2018-07-15] MEDS ORDERED: ENOXAPARIN SODIUM 40 MG/0.4 ML SYG SUBCU SCH (01:30)
[2018-07-15] MEDS ORDERED: POTASSIUM CHLORIDE 20 MEQ TAB PO ONE (01:31)
[2018-07-15] MEDS ORDERED: DOXYCYCLINE HYCLATE IV 100 MG VIAL IVPB ONE ×3 (02:21→21:00)
[2018-07-15] MEDS ORDERED: methylPREDNISolone SODIUM SUC 40 MG/ML VIAL ONE (02:22)
[2018-07-15] MEDS ORDERED: SODIUM CHLORIDE 0.9% 250ML 250 ML ONE ×3 (02:23→20:59)
[2018-07-15] MEDS: DOXYCYCLINE HYCLATE IV 100 MG in SODIUM CHLORIDE 0.9% 250ML 250 ML IVPB SCH ×2 (02:27→14:10)
[2018-07-15] MEDS: IV SET AND CAP CHANGE INJ INJ SCH (02:31)
[2018-07-15] MEDS: methylPREDNISolone SODIUM SUC 125 MG/2 ML VIAL IV SCH ×3 (05:55→21:18)
[2018-07-15] MEDS ORDERED: IPRATROPIUM/ALBUTEROL 3 ML VIAL INH SCH (08:00)
[2018-07-15] MEDS: IPRATROPIUM/ALBUTEROL 3 ML VIAL NEB SCH ×4 (11:58→20:32)
[2018-07-15] MEDS: TIOTROPIUM INHALER INH SCH (12:14)
[2018-07-15] MEDS: CITALOPRAM HBR 20 MG TAB PO SCH (12:58)
[2018-07-15] MEDS: ALPRAZolam 0.25 MG TAB PO SCH ×2 (14:10→21:19)
[2018-07-15] MEDS: PHENYTOIN SODIUM CAP EXTENDED 100 MG CAP PO SCH (21:17)
[2018-07-15] MEDS: ENOXAPARIN SODIUM 40 MG/0.4 ML SYG SUBCU SCH (21:18)
[2018-07-15] MEDS: PANTOPRAZOLE SODIUM IV 40 MG VIAL IV SCH (21:20)
[2018-07-16] MEDS: DOXYCYCLINE HYCLATE IV 100 MG in SODIUM CHLORIDE 0.9% 250ML 250 ML IVPB SCH ×2 (01:26→15:23)
[2018-07-16] MEDS ORDERED: methylPREDNISolone SODIUM SUC 125 MG/2 ML VIAL ONE (01:55)
[2018-07-16] MEDS: methylPREDNISolone SODIUM SUC 125 MG/2 ML VIAL IV SCH ×3 (05:40→21:24)
[2018-07-16] MEDS: ALPRAZolam 0.25 MG TAB PO SCH ×3 (05:40→21:25)
[2018-07-16] MEDS: SODIUM CHLORIDE 0.9% (FLUSH) 10 ML SYG IV PRN ×2 (05:41→21:24)
[2018-07-16] MEDS: IPRATROPIUM/ALBUTEROL 3 ML VIAL NEB SCH ×4 (07:30→21:35)
[2018-07-16] MEDS: TIOTROPIUM INHALER INH SCH (07:30)
[2018-07-16] MEDS: CITALOPRAM HBR 20 MG TAB PO SCH (08:56)
[2018-07-16] MEDS: PHENYTOIN SODIUM CAP EXTENDED 100 MG CAP PO SCH ×2 (08:56→21:22)
[2018-07-16] MEDS ORDERED: PHENYTOIN SODIUM CAP EXTENDED 100 MG CAP PO SCH (09:00)
[2018-07-16] MEDS: busPIRone HCL 5 MG TAB PO SCH ×2 (09:06→21:22)
[2018-07-16] MEDS ORDERED: MAGNESIUM SULFATE PREMIX 2GM 2 GM in PREMIX BAG 1 BAG IVPB ONE (09:11)
[2018-07-16] MEDS ORDERED: NICOTINE PATCH 14 MG TD PRN (09:33)
[2018-07-16] MEDS ORDERED: MAGNESIUM SULFATE PREMIX 2GM 50 ML IVPB ONE (11:59)
[2018-07-16] MEDS ORDERED: SODIUM CHLORIDE 0.9% 250ML 250 ML ONE ×2 (15:15→20:52)
[2018-07-16] MEDS ORDERED: DOXYCYCLINE HYCLATE IV 100 MG VIAL IVPB ONE ×2 (15:16→20:53)
--- NOTE | 2018-07-16 15:57 | PN ---
SUPERVISING PHYSICIAN: Nirav Carroll MD DATE: 07/16/18 SUBJECTIVE: The patient is lying in his hospital bed. He feels some better, although he occasionally continues with shortness of breath but denies chest pain,nausea or vomiting or diarrhea. OBJECTIVE: VITAL SIGNS: He is afebrile. Heart rate 102, blood pressure 122/80, respiratory rate 20, 02 saturation 95% on room air. RESPIRATORY: Diminished breath sounds throughout with occasional scattered wheezes but very minimal. At times he does get tachypneic with his respiratory rate going up into his mid 20s. He does only speak in short phrases with noticeable shortness of breath showing some improvement from yesterday. CARDIAC: Regular rate and rhythm. GI: Abdomen soft, non-tender, nondistended. Bowel sounds are positive. NEURO: He is awake, alert, and oriented x3. LABORATORY: WBC 5,6 with stale hemoglobin as 12.1 and hematocrit 36.3. His electrolytes are basically within normal limits except his magnesium is low at 1.7. All other labs and films have been reviewed via the EMR. ASSESSMENT: 1. Chronic obstructive pulmonary disease with acute exacerbation and patient with frequent hospitalizations due to poor medical compliance as well as a patient who continues to smoke. He has failed outpatient therapy as he has been seen in clinic and in ER in the past week. 2. Anxiety with panic attacks. 3. History of seizure disorder on Dilantin. 4. History of psoriasis. PLAN: We will continue present supportive care. Continue to encourage good pulmonary hygiene and he will continue with his respiratory orders from previous. He most likely will need to go to [facility] after discharge. He has poor medical compliance as well as frequent hospitalizations if he is not in a facility to assist him with his medical care. I have given him some magnesium replacement today and also ordered a nicotine patch if he needs it. Will also have lab and a chest x-ray in the morning. I have also ordered a Dilantin level as his Dilantin level was elevated when he was admitted. Otherwise, we will continue to monitor him closely and follow as needed. Dr. Carroll is the collaborating physician and available for consultation. #[id number] [facility]
[2018-07-16] MEDS: ENOXAPARIN SODIUM 40 MG/0.4 ML SYG SUBCU SCH (21:22)
[2018-07-16] MEDS: PANTOPRAZOLE SODIUM IV 40 MG VIAL IV SCH (21:23)
[2018-07-16] MEDS: SODIUM CHLORIDE 0.9% (FLUSH) 10 ML SYG IV SCH (21:23)
[2018-07-17] MEDS: DOXYCYCLINE HYCLATE IV 100 MG in SODIUM CHLORIDE 0.9% 250ML 250 ML IVPB SCH ×2 (01:31→13:33)
[2018-07-17] MEDS: SODIUM CHLORIDE 0.9% (FLUSH) 10 ML SYG IV PRN (03:24)
[2018-07-17] MEDS: ALPRAZolam 0.25 MG TAB PO SCH ×3 (05:37→21:41)
--- NOTE | 2018-07-17 07:06 | RAD ---
EXAM DESCRIPTION: Chest,2 Views CLINICAL HISTORY: pna COMPARISON: July 14, 2018 FINDINGS: The cardiomediastinal silhouette is unremarkable. There is no airspace consolidation or pleural effusion. Again seen is pulmonary hyperinflation. There is no pneumothorax or acute fracture. Old healed rib fractures are noted. IMPRESSION: Emphysema without radiographic evidence of pneumonia. Electronically signed by: Nash Schuler MD 07/17/2018 7:05 AM CDT
[2018-07-17] MEDS: predniSONE 20 MG TAB PO SCH (08:18)
[2018-07-17] MEDS: PHENYTOIN SODIUM CAP EXTENDED 100 MG CAP PO SCH ×2 (08:18→21:01)
[2018-07-17] MEDS: CITALOPRAM HBR 20 MG TAB PO SCH (08:18)
[2018-07-17] MEDS: busPIRone HCL 5 MG TAB PO SCH ×2 (08:18→21:01)
[2018-07-17] MEDS: SODIUM CHLORIDE 0.9% (FLUSH) 10 ML SYG IV SCH ×2 (08:19→21:02)
[2018-07-17] MEDS: TIOTROPIUM INHALER INH SCH (08:46)
[2018-07-17] MEDS: IPRATROPIUM/ALBUTEROL 3 ML VIAL NEB SCH ×4 (08:57→20:02)
[2018-07-17] MEDS ORDERED: SODIUM CHLORIDE 0.9% 250ML 250 ML ONE ×2 (13:21→20:15)
[2018-07-17] MEDS ORDERED: DOXYCYCLINE HYCLATE IV 100 MG VIAL IVPB ONE ×2 (13:22→20:16)
--- NOTE | 2018-07-17 14:46 | PN ---
SUPERVISING PHYSICIAN: Eddie Laura MD DATE: 07/17/18 SUBJECTIVE: The patient states he is still short of breath and having some soreness when he coughs. This is consistent with the previous times I have seen him in the hospital. He states he is anxious as well. OBJECTIVE: VITAL SIGNS: Blood pressure 140/85. Heart rate 83. Respiratory rate 17. Temperature 98.2. Oxygen saturation 96%. GENERAL: Mr. Milner is a 57-year-old male patient who is dyspneic, but does not appear to be in any pain. NEUROLOGIC: Alert and oriented. LUNGS: Very diminished bilaterally, but no active wheeze. CARDIOVASCULAR: Regular rate and rhythm. Normal S1, S2. ABDOMEN: Soft. Positive bowel sounds. GENITOURINARY: Deferred. EXTREMITIES: Lower extremities with no edema. Pulses 2+. LABORATORY: CBC unremarkable. Chemistry unremarkable. Chest x-ray with no cardiopulmonary process, but consistent with emphysema. ASSESSMENT: 1. Chronic obstructive pulmonary disease exacerbation. 2. Medical noncompliance. 3. Continuous nicotine dependency. 4. Anxiety with panic attacks. 5. History of seizure disorder. 6. History of psoriasis. PLAN: I will not change any of the medication regimen at this time. He is already on p.o. prednisone and we will put him on titrating dose up on discharge. However, in discussing with social work regarding plan upon discharge, I am going to try to get home health, I am not sure he will meet criteria to go back to [facility]. He is notoriously noncompliant and does not take his medications as needed. I spoke with Shoaib Lawrence who his primary care provider. He has been started on citalopram and Xanax here and will continue to be on those upon discharge due to his anxiety disorder. [facility][id number] [facility]
[2018-07-17] MEDS: ENOXAPARIN SODIUM 40 MG/0.4 ML SYG SUBCU SCH (21:01)
[2018-07-17] MEDS: PANTOPRAZOLE SODIUM IV 40 MG VIAL IV SCH (21:02)
[2018-07-18] MEDS: IV SET AND CAP CHANGE INJ INJ SCH (01:57)
[2018-07-18] MEDS: DOXYCYCLINE HYCLATE IV 100 MG in SODIUM CHLORIDE 0.9% 250ML 250 ML IVPB SCH (01:57)
[2018-07-18 06:05] VITALS: O2SAT 95
[2018-07-18] MEDS: ALPRAZolam 0.25 MG TAB PO SCH (06:05)
[2018-07-18] MEDS: CITALOPRAM HBR 20 MG TAB PO SCH (08:26)
[2018-07-18] MEDS: predniSONE 20 MG TAB PO SCH (08:26)
[2018-07-18] MEDS: busPIRone HCL 5 MG TAB PO SCH (08:26)
[2018-07-18] MEDS: PHENYTOIN SODIUM CAP EXTENDED 100 MG CAP PO SCH (08:26)
[2018-07-18] MEDS: SODIUM CHLORIDE 0.9% (FLUSH) 10 ML SYG IV SCH (08:27)
[2018-07-18] MEDS: IPRATROPIUM/ALBUTEROL 3 ML VIAL NEB SCH (09:27)
[2018-07-18] MEDS: TIOTROPIUM INHALER INH SCH (09:27)
[2018-07-18 09:50] VITALS: BP 136/85; TEMP 97.9
--- NOTE | 2018-07-18 11:51 | DS ---
SUPERVISING PHYSICIAN: Eddie Laura MD ADMISSION DIAGNOSIS: 1. Chronic obstructive pulmonary disease exacerbation. 2. Depression with anxiety and panic attacks. 3. History of seizure disorder. 4. History of psoriasis. DISCHARGE DIAGNOSIS: 1. Chronic obstructive pulmonary disease exacerbation. 2. Depression with anxiety and panic attacks. 3. History of seizure disorder. 4. History of psoriasis. HOSPITAL COURSE: This is a 57-year-old male patient who came to the Emergency Room with shortness of breath. He has a history of chronic obstructive pulmonary disease and has frequent hospitalizations for the same. He is noncompliant as he continues to smoke cigarettes and does not utilize his chronic medications on a regular basis either. On last admission, he was actually discharged to [facility] and he stayed there for about 20 days and then went home. Apparently, he changed his primary care provider to Shoaib Lawrence and he went to see him on . He was supposed to get some medicines for his anxiety, but there was a computer glitch and he did not get those medications. When he came into the Emergency Room, his findings on exam as well as diagnostics were consistent with chronic obstructive pulmonary disease exacerbation. Therefore, he was referred for admission. His white count was normal. He was placed on IV steroids and eventually these were weaned to p.o. I did speak with Shoaib Lawrence regarding his anxiety medications and addressed those and got those started for him as well. The patient states when he is at home, he does okay until he goes into his kitchen and then he becomes short of breath. He does not know if there is a mold or something going on there, but this happens on a regular basis. Social work has gotten involved and contacted home health as well as [facility]. [facility] says they will accept him again, so given the fact that he has progressed to his baseline status, he will be discharged today with tapering dose of steroids as well as his new anxiety medications. I have also ordered a nicotine patch as the patient continues to smoke on a regular basis. He was utilizing doxycycline IV here, so I am changing it to p.o. and finishing up a regimen of this even though his white count is normal. His activity is as tolerated and as prescribed at [facility]. Followup appointment with Shoaib Lawrence in the next 7 days. Diet as per usual diet. [facility][id number] [facility]
== END 2018-07-18 12:30 | DRG 192 ==
LOC: ER 20:09 → MS 07-15 01:20 → OBSVTOIN 07-15 01:20
PROVIDERS: ADMIT Nurse Practitioner Acute Care; ATTEND Nurse Practitioner
DX: J44.1 Chronic obstructive pulmonary disease with (acute) exacerbation (principal); F41.8 Other specified anxiety disorders; G40.909 Epilepsy, unspecified, not intractable, without status epilepticus; F41.0 Panic disorder [episodic paroxysmal anxiety]; F17.210 Nicotine dependence, cigarettes, uncomplicated; L40.9 Psoriasis, unspecified; H54.62 Unqualified visual loss, left eye, normal vision right eye; Z91.19 Patient's noncompliance with other medical treatment and regimen; Z79.51 Long term (current) use of inhaled steroids; Z79.899 Other long term (current) drug therapy; Z99.81 Dependence on supplemental oxygen

== ENCOUNTER 2019-05-07 06:52 | Emergency (ER) | payer MEDICARE ==
[2019-05-07] MEDS ORDERED: ALPRAZolam 0.25 MG TAB PO ONE (07:17)
[2019-05-07] MEDS ORDERED: ALPRAZolam 0.5 MG TAB ONE (07:18)
--- NOTE | 2019-05-07 07:40 | RAD ---
EXAM DESCRIPTION: Chest,2 Views CLINICAL HISTORY: copd, sob, anxiety COMPARISON: July 17, 2018 FINDINGS: Two-view chest x-ray shows cardiomediastinal silhouette and pulmonary vasculature to be within normal limits. The lungs are hyperinflated. Interval increased interstitial nodular changes in the right lower lobe are seen. Costophrenic angles are sharp. Osseous structures are diffusely osteopenic. Remote appearing compression fracture deformities of the mid thoracic spine are stable from previous. Interval development of right-sided rib fractures with callus formation consistent with healed or partly healed fractures are seen. Remote appearing left-sided rib fractures are stable. IMPRESSION: Mild interstitial nodular changes in the right lower lobe are new from previous exam possibly representing developing pneumonia or pneumonitis in this emphysematous chest. Electronically signed by: Ghassan Zamorano MD 05/07/2019 7:38 AM CDT
[2019-05-07] MEDS ORDERED: predniSONE 20 MG TAB PO ONE (08:05)
[2019-05-07] MEDS ORDERED: AMOXICILLIN & POT CLAVULANATE 875 MG TAB PO ONE (08:05)
[2019-05-07] MEDS ORDERED: IPRATROPIUM/ALBUTEROL 3 ML VIAL NEB ONE (08:12)
--- NOTE | 2019-05-07 08:20 | ED.PDOC ---
History of Present Illness - General Chief Complaint: Respiratory Problem Stated Complaint: SOB for the past hour Time Seen by Provider: 05/07/19 07:17 Source: patient Exam Limitations: no limitations - History of Present Illness Initial Comments: the patient is a 58-year-old male presenting to emergency room secondary to what appears to be a acute on chronic COPD exacerbation mild in nature, by an aniety attack. Apparently the patient has not been sleeping well over the last few nights secondary to generalized discomfort and he also woke up with a sensation of not being able to breathe out of his nose this morning. The patient does have end-stage COPD and is on home oxygen. He is actually saturating fairly well at this point. He is tight. He is obviously having anxiety attack. He reports that he gets these when he feels he cannot breathe out of his nose. He has been using some form of an [id number] nasal spray periodically. Timing/Duration: 1-3 hours Severity: moderate Improving Factors: nothing Worsening Factors: nothing Associated Symptoms: shortness of breath Allergies/Adverse Reactions: Allergies NO KNOWN ALLERGY Allergy (Verified 05/07/19 07:09) Home Medications: Ambulatory Orders Phenytoin Sodium Extended 200 mg PO BID 07/27/17 Albuterol Sulfate Nebs [Proventil Nebs] 2.5 mg NEB Q4H PRN #120 vial 06/23/18 Budes/Formoterol INH 160/4.5 [Symbicort Inhaler 160/4.5] 2 puff INH RTBID #1 inh 06/23/18 Tiotropium [place] Monohydrate [Spiriva Handihaler] 18 mcg IN DAILY #30 cap 06/23/18 busPIRone HCL [Buspar] 10 mg PO BID 30 Days #60 tab 07/18/18 Amoxicillin & Pot Clavulanate [Augmentin Tab] 875 mg PO BID #10 tab 05/07/19 Fluticasone Prop 0.05% Nasal [Flonase Nasal [place]] 1 spray BNAS BID #1 spray 05/07/19 predniSONE [Prednisone] 20 mg PO DAILY #3 tab 05/07/19 Review of Systems - Review of Systems Constitutional: States: no symptoms reported EENTM: States: nose congestion Respiratory: States: cough, short of breath Cardiology: States: no symptoms reported Gastrointestinal/Abdominal: States: no symptoms reported Genitourinary: States: no symptoms reported Musculoskeletal: States: back pain - chronic Skin: States: no symptoms reported Neurological: States: anxiety Endocrine: States: no symptoms reported All other Systems: No Change from Baseline Past Medical History (General) - Patient Medical History Hx Seizures: Yes Hx Stroke: No Hx Dementia: No Hx Asthma: No Hx of COPD: Yes Hx Cardiac Disorders: No Hx Congestive Heart Failure: No Hx Pacemaker: No Hx Hypertension: No Hx Thyroid Disease: No Hx Diabetes: No Hx Gastroesophageal Reflux: No Hx Renal Disease: No Hx Cancer: No Hx of HIV: No Hx Hepatitis C: No Hx MRSA: No Surgical History: no surgical history - Vaccination History Hx Tetanus, Diphtheria Vaccination: No Hx Influenza Vaccination: Yes Hx Pneumococcal Vaccination: No - Social History Hx Tobacco Use: Yes Cigarettes Packs Per Day: 1 Hx Chewing Tobacco Use: No Hx Alcohol Use: No Hx Substance Use: No Hx Substance Use Treatment: No Hx Depression: Yes Hx Physical Abuse: No Hx Emotional Abuse: No Hx Suspected Abuse: No - Female History Patient : No Family Medical History - Family History Father Family History: Unknown Name: Irving Mitchell Age (years): 70 Living Status: Age at (years of age): 70 Cause of : Stroke Hx Family Asthma: Yes - parents,brother Hx Family Congestive Heart Failure: No Hx Family Hypertension: Yes - Mother Hx Family Stroke: Yes - Father brother Hx Cardiac Disease: No Hx Family Diabetes: No Hx Family Cancer: Yes - Aunt breast cancer. Uncles colon cancer. Physical Exam - Physical Exam General Appearance: Alert, Anxious, No apparent distress Eye Exam: bilateral normal Ears, Nose, Throat: hearing grossly normal, normal pharynx, other - deviated nasal septum. Boggy edema. Neck: full range of motion, supple Respiratory: respiratory distress, decreased breath sounds, accessory muscle use, wheezing Cardiovascular/Chest: normal peripheral pulses, no edema, tachycardia Peripheral Pulses: radial,right: 2+, radial,left: 2+ Gastrointestinal/Abdominal: non tender, soft Rectal Exam: deferred Extremity: normal range of motion, non-tender, normal inspection, no pedal edema, normal capillary refill Neurologic: alert, normal mood/affect - obviously in a panic attack initially, oriented x 3 Skin Exam: normal color Comments: Vital Signs - 8 hr 06/17/19 06/17/19 06/17/19 06:52 06:55 07:52 Temperature 97.5 F L Pulse Rate [ 113 H 87 monitor] Respiratory 26 H 26 H 22 Rate Blood Pressure 184/127 136/102 [Left Arm] O2 Sat by Pulse 100 100 Oximetry Progress - Progress Progress: 05/07/19 08:22 the patient is a 58-year-old male presenting to the emergency room with an anxiety attack triggered by a sensation of shortness of breath. The patient does have advanced COPD and does appear to be having a mild COPD exacerbation. He is saturating well on nasal cannula and he does have home oxygen. He'll be placed on Augmentin for 5 days and prednisone for 3 days. 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 sleeping with a humidifier may also help or humidifying his home oxygen while he sleeps can help. This can help reduce his panic attacks. He also needs to follow-up with his primary care doctor for further addressing of his anxiety issues. ER warnings were given. Departure - Departure Clinical Impression: Acute exacerbation of COPD with asthma, Anxiety attack Disposition: Discharge to Home or Self Care Condition: Fair Departure Forms: ED Discharge - Pt. Copy, Patient Portal Self Enrollment Instructions: Exacerbation of COPD (DC), Anxiety, Adult (DC) Diet: regular diet Activity: increase activity as tolerated Referrals: Demetrius Watkins MD [Primary Care Provider] - 1-2 Weeks Prescriptions: Amoxicillin & Pot Clavulanate [Augmentin Tab] 875 mg PO BID #10 tab Fluticasone Prop 0.05% Nasal [Flonase Nasal [place]] 1 spray BNAS BID #1 spray predniSONE [Prednisone] 20 mg PO DAILY #3 tab Home Medications: Ambulatory Orders Phenytoin Sodium Extended 200 mg PO BID 07/27/17 Albuterol Sulfate Nebs [Proventil Nebs] 2.5 mg NEB Q4H PRN #120 vial 06/23/18 Budes/Formoterol INH 160/4.5 [Symbicort Inhaler 160/4.5] 2 puff INH RTBID #1 inh 06/23/18 Tiotropium [place] Monohydrate [Spiriva Handihaler] 18 mcg IN DAILY #30 cap 06/23/18 busPIRone HCL [Buspar] 10 mg PO BID 30 Days #60 tab 07/18/18 Amoxicillin & Pot Clavulanate [Augmentin Tab] 875 mg PO BID #10 tab 05/07/19 Fluticasone Prop 0.05% Nasal [Flonase Nasal [place]] 1 spray BNAS BID #1 spray 05/07/19 predniSONE [Prednisone] 20 mg PO DAILY #3 tab 05/07/19 Additional Instructions: the patient is a 58-year-old male presenting to the emergency room with an anxiety attack triggered by a sensation of shortness of breath. The patient does have advanced COPD and does appear to be having a mild COPD exacerbation. He is saturating well on nasal cannula and he does have home oxygen. He'll be placed on Augmentin for 5 days and prednisone for 3 days. 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 sleeping with a humidifier may also help or humidifying his home oxygen while he sleeps can help. This can help reduce his panic attacks. He also needs to follow-up with his primary care doctor for further addressing of his anxiety issues. Stop smoking. ER warnings were given.
[2019-05-07 09:27] VITALS: BP 104/85; TEMP 97.8; O2SAT 100
== END 2019-05-07 09:15 | disposition home or self-care (01) ==
LOC: ER 06:52
DX: J44.1 Chronic obstructive pulmonary disease with (acute) exacerbation (principal); F41.9 Anxiety disorder, unspecified; F32.9 Major depressive disorder, single episode, unspecified; R56.9 Unspecified convulsions; Z99.81 Dependence on supplemental oxygen; Z79.899 Other long term (current) drug therapy; Z87.891 Personal history of nicotine dependence
CPT/HCPCS: 71046; 94640; 94760; J7512; J7620

== ENCOUNTER 2020-03-09 16:15 | Inpatient (IN) | payer MEDICARE ==
[2020-03-09] MEDS ORDERED: ALBUTEROL INH (ER DISPENSE) 1 EA INH INH ONE (16:22)
[2020-03-09] MEDS ORDERED: SODIUM CHLORIDE 0.9% 1000ML 1,000 ML IVS PRN (16:23)
[2020-03-09] MEDS ORDERED: SODIUM CHLORIDE 0.9% (FLUSH) 10 ML SYG IV PRN ×2 (16:23→21:38)
[2020-03-09] MEDS ORDERED: methylPREDNISolone SODIUM SUC 125 MG/2 ML VIAL IV ONE (16:23)
[2020-03-09] MEDS ORDERED: ALBUTEROL INHALER 64 PUFF/8GM INH SCH (16:30)
--- NOTE | 2020-03-09 16:49 | ED.PDOC ---
History of Present Illness - General Chief Complaint: Respiratory Problem Stated Complaint: SOB, difficulty breathing, possible TEX Time Seen by Provider: 03/09/20 16:23 Source: patient, RN notes reviewed, Vital Signs reviewed, EMS notes reviewed, EMS Exam Limitations: clinical condition, other - Dyspnea, mild confusion - History of Present Illness Initial Comments: This is a 59-year-old male with longstanding history of COPD, long-term nicotine abuse, abuse, seizure disorder, who presents the emergency room via EMS after found by family at home on the floor of his bedroom reportedly unresponsive. Patient was responsive on EMS arrival, but was confused and slightly combative in route. No seizure activity was noted. In the emergency department he is a GCS of 15, states he has been short of breath for the past 3 or 4 days. He tried taking his albuterol inhaler once today without improvement. He denies any recent fever. Last EtOH intake was reportedly several days ago. Allergies/Adverse Reactions: Allergies NO KNOWN ALLERGY Allergy (Verified 05/07/19 07:09) Home Medications: Ambulatory Orders Phenytoin Sodium Extended 200 mg PO BID 07/27/17 Albuterol Sulfate Nebs [Proventil Nebs] 2.5 mg NEB Q4H PRN #120 vial 06/23/18 Budes/Formoterol INH 160/4.5 [Symbicort Inhaler 160/4.5] 2 puff INH RTBID #1 inh 06/23/18 Tiotropium [place] Monohydrate [Spiriva Handihaler] 18 mcg IN DAILY #30 cap 06/23/18 busPIRone HCL [Buspar] 10 mg PO BID 30 Days #60 tab 07/18/18 Amoxicillin & Pot Clavulanate [Augmentin Tab] 875 mg PO BID #10 tab 05/07/19 Fluticasone Prop 0.05% Nasal [Flonase Nasal [place]] 1 spray BNAS BID #1 spray 05/07/19 predniSONE [Prednisone] 20 mg PO DAILY #3 tab 05/07/19 Review of Systems - Review of Systems Constitutional: Denies: chills, fever EENTM: Denies: double vision, ear pain, nose pain Respiratory: States: cough, short of breath, wheezing. Denies: stridor Cardiology: Denies: chest pain, edema Gastrointestinal/Abdominal: Denies: abdominal pain, nausea, vomiting Genitourinary: Denies: dysuria, hematuria Musculoskeletal: Denies: back pain, joint pain, muscle pain Skin: Denies: lesions Neurological: Denies: headache, paresthesia, seizure Endocrine: States: no symptoms reported Hematologic/Lymphatic: States: no symptoms reported Past Medical History (General) - Patient Medical History Hx Seizures: Yes Hx Stroke: No Hx Dementia: No Hx Asthma: Yes Hx of COPD: Yes Hx Cardiac Disorders: No Hx Congestive Heart Failure: No Hx Pacemaker: No Hx Hypertension: No Hx Thyroid Disease: No Hx Diabetes: No Hx Gastroesophageal Reflux: No Hx Renal Disease: No Hx Cancer: No Hx of HIV: No Hx Hepatitis C: No Hx MRSA: No Surgical History: no surgical history - Vaccination History Hx Tetanus, Diphtheria Vaccination: No Hx Influenza Vaccination: No Hx Pneumococcal Vaccination: No Immunizations Up to Date: No - Social History Hx Tobacco Use: Yes Hx Chewing Tobacco Use: No Hx Alcohol Use: Yes Hx Substance Use: No Hx Substance Use Treatment: No Hx Depression: Yes - Anxiety Hx Physical Abuse: No Hx Emotional Abuse: No Hx Suspected Abuse: No - Female History Patient is a Female of Child Bearing Age (10 -59 yrs old): No Patient : No Family Medical History - Family History Father Family History: Unknown Name: Irving Mitchell Age (years): 70 Living Status: Age at (years of age): 70 Cause of : Stroke Hx Family Asthma: Yes - parents,brother Hx Family Congestive Heart Failure: No Hx Family Hypertension: Yes - Mother Hx Family Stroke: Yes - Father brother Hx Cardiac Disease: No Hx Family Diabetes: No Hx Family Cancer: Yes - Aunt breast cancer. Uncles colon cancer. Physical Exam - Physical Exam General Appearance: Anxious, Emaciated, Frail, Unkempt, Other - Disheveled Eyes, Ears, Nose, Throat Exam: PERRL/EOMI, normal ENT inspection, pharynx normal, other - 3 x 3 cm hematoma to the occiput. Neck: non-tender, full range of motion, supple Respiratory: chest non-tender, wheezing - Scant diffuse expiratory wheezing, increased respiratory effort, poor air motion Cardiovascular/Chest: normal peripheral pulses, no edema, no gallop, tachycardia Gastrointestinal/Abdominal: non tender, soft Extremity: normal range of motion, non-tender, normal inspection, no pedal edema Neurologic: no motor/sensory deficits, alert, normal mood/affect, oriented x 3 Skin Exam: normal color, warm/dry Progress - Progress Progress: 03/09/20 17:41 Recheck. Home health nurse that cares for him at home is now in the emergency department. She states that he had a fall at home and hit his head on a wall. Unknown if there was loss of consciousness or not, but he was reportedly unresponsive when she found him. 03/09/20 18:21 Patient remains somewhat confused and combative. He pulled out his initial IV, IV had to be replaced, and he refuses to sit up in bed, preferring to sit down flexed at his hips with his face on the bed. An ABG was ordered, but and returned when the patient left for CT. Initial PCO2 97. Patient is very low risk for COVID in my opinion. Will start BiPAP. 03/09/20 20:08 Discussed with Terry Arriaga NP. Will admit 03/09/20 20:29 Recheck. Mental status is normal, patient is resting comfortably in bed watching TV. No respiratory distress. Very comfortable on BiPAP. Discussed plan for admission. - Results/Orders Results/Orders: EKG reviewed personally by me at 1651. Sinus tach 118, normal axis, normal intervals, poor R wave progression, no ST segment elevations or depressions. Chest x-ray reviewed personally by me at 1642. Hyperexpansion consistent with history of COPD, no infiltrate, no pneumothorax. EXAM DESCRIPTION: Chest,1 View CLINICAL HISTORY: 59 years Male SOB COMPARISON: 05/07/2019 FINDINGS: The cardiomediastinal silhouette appears unremarkable. No consolidating infiltrates or pleural effusions. No pneumothorax. Pulmonary hyperinflation related to COPD with blunting of the costophrenic angles co nsistent with scarring. This appearance is unchanged. IMPRESSION: No acute abnormality is identified. Electronically signed by: oLu Mathur MD 03/09/2020 5:12 PM PROCEDURE: Head CLINICAL HISTORY: 59 years Male fall, head injury COMPARISON: None. TECHNIQUE: Contiguous axial CT images obtained through the brain without IV contrast. This exam was performed according to our department optimization program which includes automated exposure control, adjustment of the mA and/or kv according to patient size and/or use of iterative reconstruction technique. FINDINGS: The ventricles and sulci are prominent consistent with atrophic changes. Microvascular ischemic changes. No midline shift or mass effect. No mass lesions. No acute hemorrhage. Atherosclerotic calcifications. No fluid or significant mucosal thickening in the visualized paranasal sinuses. No depressed calvarial fractures. IMPRESSION: Motion artifact limits evaluation No acute intracranial abnormality is identified. Generalized atrophy with microvascular ischemic changes. Electronically signed by: Lou Mathur MD 03/09/2020 6:43 PM 03/09/20 16:23 Sodium Chloride 0.9% (Flush) [Saline Flush Syringe] 10 ml IV PRN PRN Sodium Chloride 0.9% 1000ML [Ns 1000 ml] 1,000 ml IVS .QD 03/09/20 16:30 Albuterol Inhaler [Ventolin Hfa Inhaler] 8 puff INH STAT EKG STAT 03/09/20 16:47 BLOOD CULTURE Stat 03/09/20 18:17 BiPAP/CPAP Treatment DAILY 03/10/20 09:00 BiPAP Daily Pulse Ox Daily 03/09/20 16:23 Sodium Chloride 0.9% (Flush) [Saline Flush Syringe] 10 ml IV PRN PRN Sodium Chloride 0.9% 1000ML [Ns 1000 ml] 1,000 ml IVS .QD 03/09/20 16:30 Albuterol Inhaler [Ventolin Hfa Inhaler] 8 puff INH STAT EKG STAT 03/09/20 16:47 BLOOD CULTURE Stat 03/09/20 18:17 BiPAP/CPAP Treatment DAILY 03/09/20 19:08 ABG [Arterial Blood Gas] Stat 03/09/20 20:26 ED Intent to Admit Routine 03/10/20 09:00 BiPAP Daily Pulse Ox Daily Laboratory Results - last 24 hr 03/09/20 03/09/20 03/09/20 16:47 16:47 16:47 WBC 5.4 RBC 4.72 Hgb 12.7 L Hct 40.3 L MCV 85.3 MCH 26.8 L MCHC 31.4 L RDW 13.1 Plt Count 244 MPV 6.7 L Absolute Neuts (auto) 4.20 Absolute Lymphs (auto) 0.80 L Absolute Monos (auto) 0.30 Absolute Eos (auto) 0.10 Absolute Basos (auto) 0.00 Neutrophils % 76.9 Lymphocytes % 15.3 L Monocytes % 4.6 Eosinophils % 2.4 Basophils % 0.8 pCO2 pO2 HCO3 ABG pH ABG O2 Saturation ABG Base Excess ABG Deoxyhemoglobin Oxyhemoglobin % Carboxyhemoglobin % Methemoglobin % Sat Calc Total Hemoglobin Sodium 140 Potassium 4.2 Chloride 90 L Carbon Dioxide 40 H Anion Gap 14.2 BUN 9 Creatinine 0.52 L BUN/Creatinine Ratio 17.3 Random Glucose 112 H Serum Osmolality 278.8 Calcium 9.2 Total Bilirubin 0.4 AST 21 ALT 13 Alkaline Phosphatase 65 Troponin I B-Natriuretic Peptide < 5.0 Serum Total Protein 6.7 Albumin 4.1 Globulin 2.6 Albumin/Globulin Ratio 1.6 Ethyl Alcohol < 5.40 03/09/20 03/09/20 16:47 17:11 WBC RBC Hgb Hct MCV MCH MCHC RDW Plt Count MPV Absolute Neuts (auto) Absolute Lymphs (auto) Absolute Monos (auto) Absolute Eos (auto) Absolute Basos (auto) Neutrophils % Lymphocytes % Monocytes % Eosinophils % Basophils % pCO2 97 H* pO2 83 HCO3 47.8 ABG pH 7.299 L* ABG O2 Saturation 95.7 ABG Base Excess 17.3 ABG Deoxyhemoglobin 4.2 Oxyhemoglobin % 92.6 L Carboxyhemoglobin % 2.1 H Methemoglobin % Sat 1.1 Calc Total Hemoglobin 11.4 L Sodium Potassium Chloride Carbon Dioxide Anion Gap BUN Creatinine BUN/Creatinine Ratio Random Glucose Serum Osmolality Calcium Total Bilirubin AST ALT Alkaline Phosphatase Troponin I < 0.02 B-Natriuretic Peptide Serum Total Protein Albumin Globulin Albumin/Globulin Ratio Ethyl Alcohol Departure - Departure Clinical Impression: COPD with acute exacerbation, Acute respiratory failure with hypoxia and hypercapnia Fall at home Qualifiers: Encounter type: initial encounter Qualified Code(s): W19.XXXA - Unspecified fall, initial encounter Closed head injury with concussion Qualifiers: Encounter type: initial encounter Loss of consciousness presence/duration: with LOC of unspecified duration Qualified Code(s): S06.0X9A - Concussion with loss of consciousness of unspecified duration, initial encounter Disposition: Admit Patient Departure Forms: ED Discharge - Pt. Copy, Patient Portal Self Enrollment Referrals: Demetrius Watkins MD [Primary Care Provider] - 1-2 Weeks Home Medications: Ambulatory Orders Phenytoin Sodium Extended 200 mg PO BID 07/27/17 Albuterol Sulfate Nebs [Proventil Nebs] 2.5 mg NEB Q4H PRN #120 vial 06/23/18 Budes/Formoterol INH 160/4.5 [Symbicort Inhaler 160/4.5] 2 puff INH RTBID #1 inh 06/23/18 Tiotropium [place] Monohydrate [Spiriva Handihaler] 18 mcg IN DAILY #30 cap 06/23/18 busPIRone HCL [Buspar] 10 mg PO BID 30 Days #60 tab 07/18/18 Amoxicillin & Pot Clavulanate [Augmentin Tab] 875 mg PO BID #10 tab 05/07/19 Fluticasone Prop 0.05% Nasal [Flonase Nasal [place]] 1 spray BNAS BID #1 spray 05/07/19 predniSONE [Prednisone] 20 mg PO DAILY #3 tab 05/07/19 Critical Care Note - Critical Care Note Total Time (mins): 36 Comments: Patient with hypoxic and hypercapnic respiratory failure requiring BiPAP. History of COPD. He presented tachycardic and tachypneic, met 2 sirs criteria, Levaquin given, IV fluids given for possible sepsis. Time was spent in documentation, multiple evaluations with the patient, consultations, reviewing labs, reviewing imaging, reviewing old records, vent management with RT.
[2020-03-09] MEDS ORDERED: levoFLOXacin 750MG IV 750 MG in PREMIX BAG 1 BAG IVPB ONE (17:07)
--- NOTE | 2020-03-09 17:13 | RAD ---
EXAM DESCRIPTION: Chest,1 View CLINICAL HISTORY: 59 years Male SOB COMPARISON: 05/07/2019 FINDINGS: The cardiomediastinal silhouette appears unremarkable. No consolidating infiltrates or pleural effusions. No pneumothorax. Pulmonary hyperinflation related to COPD with blunting of the costophrenic angles consistent with scarring. This appearance is unchanged. IMPRESSION: No acute abnormality is identified. Electronically signed by: Lou Mathur MD 03/09/2020 5:12 PM CDT
[2020-03-09] MEDS ORDERED: MIDAZOLAM INJ 5 MG/5 ML VIAL IV ONE (17:21)
[2020-03-09] MEDS ORDERED: MIDAZOLAM INJ 5 MG/5 ML VIAL IM ONE (17:28)
--- NOTE | 2020-03-09 18:45 | CT ---
PROCEDURE: Head CLINICAL HISTORY: 59 years Male fall, head injury COMPARISON: None. TECHNIQUE: Contiguous axial CT images obtained through the brain without IV contrast. This exam was performed according to our department optimization program which includes automated exposure control, adjustment of the mA and/or kv according to patient size and/or use of iterative reconstruction technique. FINDINGS: The ventricles and sulci are prominent consistent with atrophic changes. Microvascular ischemic changes. No midline shift or mass effect. No mass lesions. No acute hemorrhage. Atherosclerotic calcifications. No fluid or significant mucosal thickening in the visualized paranasal sinuses. No depressed calvarial fractures. IMPRESSION: Motion artifact limits evaluation No acute intracranial abnormality is identified. Generalized atrophy with microvascular ischemic changes. Electronically signed by: Lou Mathur MD 03/09/2020 6:43 PM CDT
--- NOTE | 2020-03-09 21:07 | HP ---
SUPERVISING PHYSICIAN: Brandon Laura MD CHIEF COMPLAINT: Respiratory failure with possible generalized anxiety disorder, panic attack. HISTORY OF PRESENT ILLNESS: Mr. Milner is a 59 year-old male patient with a longstanding history of chronic obstructive pulmonary disease, chronic nicotine addiction and seizure disorder. He presented to the Emergency Room via 911 after his family found him at home in the bedroom reportedly unresponsive. On arrival by EMS, the patient was responsive but was confused and slightly combative en route. No active seizure activity was noted by EMS and in the Emergency Department his GCS on initial presentation was 15. He did endorse that he had been short of breath for about the last 3 to 4 days. He had been using an albuterol inhaler once daily but had no improvement. He denied any recent fevers and had drank alcohol within the last couple of days but did not on the date of admission. He denies any travel or recent contact with individuals. His initial blood gas in the Emergency Room did show respiratory acidosis with a pH of 7.299, PC02 of 97, P02 of 83, bicarb 47 with base excess 17 on room air. His initial chemistries showed a C02 of 40, BUN 9, creatinine 0.52, troponin less than 0.02. Alcohol level was less than 5.4. Chest x-ray, single-view, per radiology interpretation showed no acute abnormalities, just hyperinflation related to chronic obstructive pulmonary disease. Appearance is unchanged from previous as noted in May 07, 2019. He had a CT of the head without contrast given his acute mental status change and reported unresponsiveness with no acute intracranial abnormalities noted by radiologist. On initial assessment, he was not showing any significant respiratory distress compared to his ABGs but was put on BiPAP and was maintaining 02 saturations in the high 90s, he was not lethargic and was not obviously short of breath. A repeat ABG 30 minutes prior initiation of BiPAP showed a P02 decreasing sightly but was still elevated at 95 I believe as that result was verbally given on report. Given the degree of exacerbation of chronic obstructive pulmonary disease with respiratory acidosis and needing non-ventilatory respiratory support in the form of BiPAP, the patient is going to be admitted for exacerbation of chronic obstructive pulmonary disease for further evaluation and treatment. He was admitted in stable condition. PAST MEDICAL HISTORY: 1. Seizure disorder, last seizure activity not known. 2. Chronic obstructive pulmonary disease with a degree of asthma in a chronic smoker. 3. Psoriasis. 4. Left eye blindness. 5. Chronic' anxiety disorder. PAST SURGICAL HISTORY: No major surgeries listed. He did have a bronchoscopy at age14 due to aspiration of a Pop-Tart. CURRENT MEDICATIONS: 1. Prednisone 20 mg daily. 2. BuSpar 10 mg b.i.d. 3. Spiriva hand inhaler 18 mcg daily. 4. Dilantin 200 mg b.i.d. 5. Flonase 1 spray in both nare bitemporal 6. Symbicort inhaler 160-4.5, two puffs b.i.d. 7. Albuterol nebulizer 2.5 mg every 4 hours p.r.n. ALLERGIES: No known drug allergies. FAMILY HISTORY: Noncontributory and unknown. SOCIAL HISTORY: He lives in [place] and he lives alone, family checks on him. He has been in [facility] at some point. He does to continue to smoke about half pack to one pack of cigarettes per day. He does drink alcohol on a fairly regular occasion but says he has not drank in the last few days. He is disabled. I believe his primary care physician is Dr. Watkins. REVIEW OF SYSTEMS: CONSTITUTIONAL: Denies fevers, chills, general malaise. HEENT: Denies headaches. vision changes, sore throat. nasal congestion, earaches. CHEST: As noted, shortness of breath with wheezing and cough. HEART: Denies chest pain, palpitations, or syncopal episodes. . ABDOMEN: Negative for nausea, vomiting, diarrhea or constipation or abdominal pains. GENITOURINARY: Denies dysuria, hematuria or polyuria. MUSCULOSKELETAL: Denies back pain, joint pain, muscle pain. SKIN: Denies lesions, rashes or unexplained changes. NEUROLOGIC: Denies ataxia, seizures,headaches or other focal deficits. HEMATOLOGICAL: Denies unexplained bleeding, easy bruising or transfusion reactions. PHYSICAL EXAMINATION: VITAL SIGNS: Initially on presentation temperature was 96, pulse 119, blood pressure 143/101, respirations 30, oxygen saturation 89% on room air, with 2 liters nasal cannula he was showing 92% saturations. He was placed on BiPAP and saturations were 98%. Blood pressure down to 116/85. Admission weight 36 kg. GENERAL: The patient is disheveled, unkept, currently on BiPAP and showing to be in no acute distress. He is very frail and emaciated in appearance. HEENT: Tympanic membranes clear bilaterally. Oropharynx is pink. There was a 3 cm hematoma noted to the occipital area. No obvious laceration. NECK: Supple, non-tender, full range of motion, no jugular venous distention. CHEST: Lungs with diffuse inspiratory and expiratory wheezing with decreased breath sounds throughout. No rales or rhonchi heard. CARDIOVASCULAR: Heart regular rate and rhythm without appreciable murmurs, rubs, or gallops showing tachycardiac rhythm on the monitor. ABDOMEN: Non-tender, positive bowel sounds. EXTREMITIES: Without cyanosis, clubbing, or edema. NEUROLOGIC: He is alert and oriented x 3. Cranial nerves II through XII are grossly intact. Facial features were symmetrical, extraocular movements within normal limits. He was oriented x3. SKIN: Warm, pink and dry. LABORATORY: White count 5,100, hemoglobin 12.7, hematocrit 40.3, platelet count 244,00, differential shows to be without a left shift. Blood gas analysis showed a respiratory acidosis with pH 7.29, PC02 of 97, P02 of 83, bicarb 47 with 02 saturation 95.7%, base excess 17.3. Chemistries showed sodium of 140, potassium 4.2, carbon dioxide 40, anion gap normal at 14, creatinine 0.52, BUN 9. Liver functions all within normal limits. Troponin less than 0.02. Urinalysis pending. Blood alcohol level was less than 5.4. MICROBIOLOGY: Blood cultures pending. RADIOLOGY: Single-view chest x-ray showed no consolidative infiltrates or pleural effusions. There was pulmonary hyperinflation related to chronic obstructive pulmonary disease with blunting of the costophrenic angles consistent with scarring with appearance unchanged on comparison of 05/07/[address] of the head without contrast per radiology interpretation showed no acute intracranial abnormalities, just generalized atrophy of microvascular ischemic changes. ASSESSMENT: 1. Acute exacerbation of chronic obstructive pulmonary disease. 2. Respiratory acidosis without compensation secondary to #1 requiring initiation of non-evasive ventilatory support in the form of BiPAP. 3. Severe nutritional deficit in the form of malnutrition with a BMI on admission of 12. 4. History of seizure disorder with no recent history of seizures. 5. Chronic psoriasis. 6. Chronic left eye blindness. 7. Chronic anxiety disorder. 8. Chronic nicotine abuse in a current smoker. 9. History of alcohol abuse. PLAN: Mr. Milner is going to be admitted for further evaluation and treatment of his chronic obstructive pulmonary disease exacerbation. No obvious signs of pneumonia but we will go ahead and put him on antibiotics with Rocephin and azithromycin. In the Emergency Room he was covered empirically initially with Levaquin. Will continue with Rocephin and azithromycin. He was given Solu- Medrol initially 125 mg, will follow this up with 40 mg every 6 hours for 4 doses. He will be on Protonix for PPI gastric protection. Will have him on DVT prophylaxis per protocol. Will have him on Xopenex breathing treatments given his degree of anxiety while on BiPAP. Will utilize BiPAP as needed and titrate down. Will recheck labs in the morning including CBC and BMP as his C02 if significantly elevated, we may want to repeat ABG but I think at this point he is actually showing stability and will correct overnight. He will be on a youth nutritional monitor, we have him on every 4 hours neuro checks. Will put him on normal saline at 100 mLs per hour for continued fluid resuscitation. He will be on regular diet as tolerated. Will resume his home medications once those have been updated and verified. I have ordered both a consultation with [facility] and physical therapy. I anticipate his length of stay to be at least 2 or 3 days. Until we can transition him to outpatient management, we will continue to monitor and treat as needed. #[id number] [facility]
[2020-03-09] MEDS ORDERED: ONDANSETRON INJ 4 MG/2 ML VIAL IV PRN (21:38)
[2020-03-09] MEDS ORDERED: MAGNESIUM HYDROXIDE 30 ML UD PO PRN (21:38)
[2020-03-09] MEDS ORDERED: ALUM & MAG HYDROX-SIMETHICONE 30 ML UD PO PRN (21:38)
[2020-03-09] MEDS ORDERED: ACETAMINOPHEN 325 MG TAB PO PRN (21:38)
[2020-03-09] MEDS ORDERED: LEVALBUTEROL NEBS 1.25 MG/3 ML VIAL NEB PRN (21:45)
[2020-03-09] MEDS ORDERED: IV SET AND CAP CHANGE INJ INJ SCH (22:00)
[2020-03-09] MEDS ORDERED: SODIUM CHLORIDE 0.9% 250ML 250 ML ONE (22:18)
[2020-03-09] MEDS: AZITHROMYCIN IV 500 MG in SODIUM CHLORIDE 0.9% 250ML 250 ML IVPB SCH (22:41)
[2020-03-10] MEDS: BUDESONIDE NEBS 0.5 MG/2 ML INH NEB SCH ×3 (00:50→20:05)
[2020-03-10] MEDS: LEVALBUTEROL NEBS 1.25 MG/3 ML VIAL NEB SCH ×6 (00:50→20:05)
[2020-03-10] MEDS: methylPREDNISolone SODIUM SUC 40 MG/ML VIAL IV SCH ×4 (05:31→23:39)
[2020-03-10] MEDS: PANTOPRAZOLE SODIUM IV 40 MG VIAL IV SCH (05:31)
[2020-03-10] MEDS ORDERED: cefTRIAXone SODIUM 1 GM VIAL ONE (08:03)
[2020-03-10] MEDS ORDERED: SODIUM CHL 0.9% 50ML MIN-BAG+ 50 ML IVPB ONE (08:03)
[2020-03-10] MEDS: cefTRIAXone SODIUM 1 GM in SODIUM CHL 0.9% 50ML MIN-BAG+ 50 ML IVPB SCH (08:27)
--- NOTE | 2020-03-10 15:19 | PN ---
SUPERVISING PHYSICIAN: Demetrius Watkins MD DATE: 03/10/20 SUBJECTIVE: The patient is sitting up in bed. He is actually completely bent at the waist. He has refused wearing his BiPAP off and on during the day. I warned him that if he did not wear it, it would be detrimental and he said he did not want anything done, so he agreed to a DNR and he signed that. I also explained to him that we would do COVID-19 testing on him due to his high risk for the infection. Nursing has reported that he has been very uncooperative for most of the morning and often refuses to wear his BiPAP. OBJECTIVE: VITAL SIGNS: Temperature 99.4. Heart rate 111. Blood pressure 115/76. Respiratory rate 12. O2 saturation 99%. It drops to the upper 80s when he is off his BiPAP. RESPIRATORY: Diminished breath sounds throughout with scattered rhonchi and expiratory wheezing. CARDIAC: Tachycardiac rate and regular rhythm. GASTROINTESTINAL: Abdomen is soft. He is cachectic. Nondistended, nontender. Bowel sounds are positive. NEUROLOGIC: He is awake. He is alert and oriented times 3. LABORATORY: Sodium 133, potassium 4.6, chloride 90, carbon dioxide 37, BUN 9, creatinine 0.48. Blood cultures are pending. All other labs and films have been reviewed via the EMR. ASSESSMENT: 1. Acute hypercapnic hypoxic respiratory failure with respiratory acidosis. 2. Acute exacerbation of chronic obstructive pulmonary disease. 3. Severe nutritional deficit in the form of malnutrition with a BMI on admission of 12. 4. High risk for COVID-19, presently awaiting results. 5. History of seizure disorder with no recent history of seizures. 6. Chronic psoriasis. 7. Chronic left eye blindness. 8. Chronic anxiety disorder. 9. Chronic nicotine abuse in a current smoker. 10. History of alcohol abuse. PLAN: We will continue present supportive care. A DNR has been signed by the patient. We have encouraged him to continue his BiPAP. He has been put in isolation pending COVID-19 results. I have cultured his urine. I have ordered lab and chest x-ray for in the morning. We will continue to monitor the patient closely and follow as needed. #[id number] [facility]
[2020-03-10] MEDS ORDERED: SODIUM CHLORIDE 0.9% 250ML 250 ML ONE (18:57)
[2020-03-10] MEDS ORDERED: AZITHROMYCIN IV 500 MG VIAL IVPB ONE (18:58)
[2020-03-10] MEDS ORDERED: ENOXAPARIN SODIUM 40 MG/0.4 ML SYG SUBCU ONE (18:58)
[2020-03-10] MEDS ORDERED: ENOXAPARIN SODIUM 40 MG/0.4 ML SYG SUBCU SCH (21:00)
[2020-03-10] MEDS: AZITHROMYCIN IV 500 MG in SODIUM CHLORIDE 0.9% 250ML 250 ML IVPB SCH (21:11)
[2020-03-11] MEDS: LEVALBUTEROL NEBS 1.25 MG/3 ML VIAL NEB SCH ×4 (00:15→13:00)
[2020-03-11] MEDS: PANTOPRAZOLE SODIUM IV 40 MG VIAL IV SCH (06:43)
--- NOTE | 2020-03-11 07:22 | RAD ---
EXAM DESCRIPTION: Chest,1 View CLINICAL HISTORY: resp failure COMPARISON: March 09, 2020 FINDINGS: The cardiomediastinal silhouette is unremarkable. There is no airspace consolidation or pleural effusion. The lungs are hyperinflated. There is no pneumothorax or acute fracture. IMPRESSION: Emphysema without acute intrathoracic abnormality. Electronically signed by: Nash Schuler MD 03/11/2020 7:21 AM CDT
[2020-03-11] MEDS ORDERED: SODIUM CHL 0.9% 50ML MIN-BAG+ 50 ML IVPB ONE (07:25)
[2020-03-11] MEDS ORDERED: cefTRIAXone SODIUM 1 GM VIAL ONE (07:25)
[2020-03-11] MEDS: BUDESONIDE NEBS 0.5 MG/2 ML INH NEB SCH (07:50)
[2020-03-11] MEDS ORDERED: predniSONE 20 MG TAB ONE (08:35)
[2020-03-11] MEDS: cefTRIAXone SODIUM 1 GM in SODIUM CHL 0.9% 50ML MIN-BAG+ 50 ML IVPB SCH (08:36)
[2020-03-11] MEDS ORDERED: predniSONE 20 MG TAB PO SCH (09:00)
[2020-03-11 12:24] VITALS: BP 130/74; TEMP 98; O2SAT 99
--- NOTE | 2020-03-11 14:10 | DS ---
SUPERVISING PHYSICIAN: Demetrius Watkins MD DISCHARGE DIAGNOSIS: 1. Acute hypercapnic hypoxic respiratory failure with respiratory acidosis. 2. Acute exacerbation of chronic obstructive pulmonary disease. 3. Severe nutritional deficit in the form of malnutrition with a BMI on admission of 12. 4. High risk for COVID-19, presently awaiting results. 5. History of seizure disorder with no recent history of seizures. 6. Chronic psoriasis. 7. Chronic left eye blindness. 8. Chronic anxiety disorder. 9. Chronic nicotine abuse in a current smoker. 10. Chronic alcohol abuse. HISTORY OF PRESENT ILLNESS: This is a 59 year-old male patient who lives at home alone. He is oxygen dependent. He has a longstanding history of chronic obstructive pulmonary disease, chronic nicotine addiction and seizure disorder. He presented to the Emergency Room after his family found him at home in the bed unresponsive. Upon admission to the ER, he was confused and slightly combative. No seizure activity was noted by EMS and in the Emergency Department his GCS on initial presentation was 15. The patient did say that he was short of breath for the last 3 to 4 days prior to coming to the ER. He had been using an albuterol inhaler without improvement. There had been no recent fevers and he had drank alcohol within the last couple of days prior to admission, but not on the day of admission. He denied any travel or recent contact with individuals other his caregiver from [facility]. His initial blood gas in the Emergency Room did show a pH of 7.29, pCO2 of 97, pO2 of 83, bicarb 47 with base excess 15. His initial chemistries showed a CO2 of 40, BUN 9, creatinine 0.52, troponin less than 0.02. Alcohol level was less than 5.4. Chest x-ray showed no acute abnormalities, just hyperinflation related to chronic obstructive pulmonary disease. CT of the head without contrast showed no acute intracranial abnormalities. Initially, his respiratory status was worsening. Followup ABG showed pCO2 of 95 with a pO2 23. His pH was 7.29. His O2 saturation per ABG was 40.4. He was placed on BiPAP. Two hours after initiation of the BiPAP, his pCO2 was 70 with a pO2 78, bicarb 42.8, pH 7.39, O2 96.4%. His respiratory distress was minimized although he would desaturate once he took the BiPAP off. He was more alert. He was admitted to the hospital for exacerbation of chronic obstructive pulmonary disease with acute respiratory hypercapnic hypoxic respiratory failure, but he was in stable condition at the time of admission. HOSPITAL COURSE: He was started on Rocephin and azithromycin. He had been covered with Levaquin in the Emergency Room. He was also given an IV dose of Solu-Medrol. It was titrated over the next several days. He was given aggressive pulmonary hygiene including scheduled and p.r.n. breathing treatments. He also was noted to be very anxious and was given some Ativan to help with the anxiety. He refused to wear his BiPAP most of the time. During his second day of hospitalization, we had a lengthy discussion about his outcomes if he did not wear it and he became more compliant although he did say he wished to be a DNR and did not want to be put on life support. A DNR was signed. The patient's respiratory status improved over the next 24 hours. His vital signs stabilized. He will be discharged home today in stable condition. LABORATORY: CBC is unremarkable. Sodium was slightly low at 134 with a chloride of 89, carbon dioxide 39, BUN 12, creatinine 0.44. Liver enzymes were within normal limits. Urinalysis was unremarkable. Preliminary blood cultures showed no growth after 24 hours. RADIOLOGY: His final chest x-ray showed emphysema without acute intrathoracic abnormality. DISCHARGE PLAN: The patient will be discharged home in stable, but poor condition. He will have [facility] resumed. He is to resume his previous diet and is encouraged to increase his caloric intake, increase his activity as tolerated. He has followup with Dr. Watkins, his primary care physician, within 1 to 2 weeks. In addition to his routine home medications, he has a prescription of prednisone taper as well as cefdinir antibiotic. He is encouraged to stop smoking as well as to stop drinking alcohol. He is to return to the hospital for any problems or complications. DISCHARGE MEDICATIONS: 1. Phenytoin. 2. Albuterol sulfate nebulizers. 3. Cefdinir. 4. Prednisone taper. #[id number] [facility]
== END 2020-03-11 13:45 | disposition home or self-care (01) | DRG 189 ==
LOC: ER 16:15 → OBSVTOIN 21:05 → MS 21:05
PROVIDERS: ADMIT Nurse Practitioner Family; ATTEND Nurse Practitioner Acute Care
DX: J96.02 Acute respiratory failure with hypercapnia (principal); E46 Unspecified protein-calorie malnutrition; Z68.1 Body mass index [BMI] 19.9 or less, adult; J43.9 Emphysema, unspecified; J96.01 Acute respiratory failure with hypoxia; F41.0 Panic disorder [episodic paroxysmal anxiety]; G40.909 Epilepsy, unspecified, not intractable, without status epilepticus; F17.210 Nicotine dependence, cigarettes, uncomplicated; L40.9 Psoriasis, unspecified; H54.7 Unspecified visual loss; F10.10 Alcohol abuse, uncomplicated; Z66 Do not resuscitate